=== PATIENT | male | born 2000 | race Caucasian/White ===

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

== ENCOUNTER 2018-01-24 07:44 | Emergency (ER) | payer MEDICAID ==
--- NOTE | 2018-01-24 08:11 | ED ---
Shortness of Breath - HPI Summary HPI Summary: Patient is a 17 y/o M BIBA w c/o SOB and left chest pain onsetting this morning at 0600. In the room, he states he "cannot breath" as he is browsing his phone. He states that he recently found out that he has cardiac problems but he is unsure of a specific problem. Patient reports Hx of anxiety. SI is denied. On triage, pain is rated 3/10, nothing is noted to aggravate/alleviate Sx. Home medications and allergies are reviewed. - History of Current Complaint Chief Complaint: EDShortnessOfBreath Time Seen by Provider: 01/24/18 07:50 Hx Obtained From: Patient Onset/Duration: Lasting Hours - onset 0600, Still Present Timing: Constant Current Severity: Mild - 3/10 Aggrevating Factors: Nothing Alleviating Factors: Nothing - Allergy/Home Medications Allergies/Adverse Reactions: Allergies Allergy/AdvReac Type Severity Reaction Status Date / Time No Known Allergies Allergy Verified 01/24/18 07:52 PMH/Surg Hx/FS Hx/Imm Hx Endocrine/Hematology History: Denies: Hx Anemia Cardiovascular History: Denies: Hx Hypertension, Other Cardiovascular Problems/Disorders - PT CLAIMS TO HAVE HEART PROBLEMS OF UNSPECIFIED TYPE Respiratory History: Denies: Hx Asthma Sensory History: Denies: Hx Contacts or Glasses, Hx Hearing Aid Opthamlomology History: Denies: Hx Contacts or Glasses Neurological History: Reports: Hx 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 on 05/15/2016, Hx Seizures Psychiatric History: Reports: Hx Anxiety, Hx Depression, Hx Post Traumatic Stress Disorder, Hx Inpatient Treatment, Hx Community Mental Health Tx, Hx Bipolar Disorder, Hx of Violent Episodes Against Others, Hx Substance Abuse, Other Psychiatric Issues/Disorders - ODD Denies: Hx Eating Disorder, Hx Panic Disorder, Hx Schizophrenia, Hx Suicide Attempt - Surgical History Surgery Procedure, Year, and Place: undescended testicle Infectious Disease History: No Infectious Disease History: Denies: Hx Clostridium Difficile, Hx Hepatitis, Hx Human Immunodeficiency Virus (HIV), Hx of Known/Suspected MRSA, Hx Shingles, Hx Tuberculosis, Hx Known/ Suspected VRE, Hx Known/Suspected VRSA, History Other Infectious Disease, Traveled Outside the [place] in Last 30 Days - Family History Known Family History: Positive: Cardiac Disease - Dad with [place] x 4, Other - SI and suicide - brother. Schizophrenia and bipolar positive to father Negative: Hypertension, Diabetes - Social History Alcohol Use: None Alcohol Amount: "2 bottles of vodka weekly" Hx Substance Use: Yes - denies using as of 05/15/2016 Substance Use Type: Reports: Cocaine, Marijuana, Other Substance Use Comment - Amount & Last Used: none in 6 months d/t probation Hx Tobacco Use: No Smoking Status (MU): Heavy Every Day Tobacco Smoker Type: Cigarettes Review of Systems Positive: Chest Pain Positive: Shortness Of Breath Positive: Other - denies SI All Other Systems Reviewed And Are Negative: Yes Physical Exam - Summary Physical Exam Summary: Appearance: Well appearing, no pain distress Skin: warm, dry, reflects adequate perfusion Head/face: normal Eyes: EOMI, VICKY ENT: normal Neck: supple, non-tender Respiratory: CTA, breath sounds present Cardiovascular: RRR, pulses symmetrical Abdomen: non-tender, soft Bowel: present Musculoskeletal: normal, strength/ROM intact Neuro: normal, sensory motor intact, A&Ox3 Triage Information Reviewed: Yes Vital Signs On Initial Exam: Initial Vitals Temp Pulse Resp BP Pulse Ox 98.0 F 66 14 119/77 96 01/24/18 07:48 01/24/18 07:48 01/24/18 07:48 01/24/18 07:48 01/24/18 07:48 Vital Signs Reviewed: Yes Diagnostics - Vital Signs Vital Signs Temp Pulse Resp BP Pulse Ox 01/24/18 07:48 98.0 F 66 14 119/77 96 - Laboratory Result Diagrams: 01/24/18 08:31 01/24/18 08:31 Lab Statement: Any lab studies that have been ordered have been reviewed, and results considered in the medical decision making process. - Radiology CXR Radiology Interpretation Completed By: Radiologist Summary of Radiographic Findings: No evidence for acute intrathoracic disease. This report was reviewed by ED physician. - EKG 0828 Cardiac Rate: NL - rate of 70 BPM EKG Rhythm: Sinus Rhythm Summary of EKG Findings: no acute changes Re-Evaluation - Re-Evaluation First Eval Re-Evaluation Time: 09:42 Comment: Discussed results of labs and tests as well as follow up treatment plan. Patient is agreeable with discharge. Course/Dx - Course Course Of Treatment: Patient is a 17 y/o M BIBA w c/o SOB and left chest pain onsetting this morning at 0600. In the room, he states he "cannot breath" as he is browsing his phone. He states that he recently found out that he has cardiac problems but he is unsure of a specific problem. Patient reports Hx of anxiety. SI is denied. Physical exam was unremarkable. Bloodwork obtained. CXR showed no evidence for acute intrathoracic disease. EKG showed sinus rhythm and rate with no acute changes. Discussed results of labs and tests as well as follow up treatment plan. Patient is agreeable with discharge. Dx of anxiety. - Diagnoses Provider Diagnoses: Anxiety Discharge - Sign-Out/Discharge Documenting (check all that apply): Patient Departure - discharge - Discharge Plan Condition: Stable Disposition: HOME Patient Education Materials: Anxiety (ED) Referrals: [facility] [Outside] - 3 Days Additional Instructions: RETURN TO ED FOR ANY NEW OR WORSENING SYMPTOMS. FOLLOW UP WITH PRIMARY CARE PHYSICIAN IN THREE DAYS. - Billing Disposition and Condition Condition: STABLE Disposition: Home - Attestation Statements Document Initiated by Sylviaibe: Yes Documenting Scribe: Evangelista Capellan Provider For Whom Iris is Documenting (Include Credential): Ari Elliott MD Scribe Attestation: Evangelista Carter scribed for Ari Elliott MD on 01/24/18 at 1106. Scribe Documentation Reviewed: Yes Provider Attestation: The documentation as recorded by the Evangelista shafer accurately reflects the service I personally performed and the decisions made by me, Ari Elliott MD
--- NOTE | 2018-01-24 08:27 | RAD ---
INDICATION: Mild dyspnea. Chest pain. COMPARISON: December 04, 2016 TECHNIQUE: Dual energy PA and routine lateral views of the chest were obtained. REPORT: No focal pulmonary lesion, compelling alveolar consolidation, pleural effusion, pneumothorax. Negative for cardiomegaly. Unremarkable central pulmonary vasculature. Accounting for mild RIGHT convex curve of the mid to distal thoracic spine the mediastinal contours are unremarkable. Old high-grade RIGHT AC joint separation with associated dystrophic calcifications. No acute fracture visualized. IMPRESSION: #. No evidence for acute intrathoracic disease.
[2018-01-24 08:41] LABS: ABS Basophils 0 10^3/ul (0-0.2); ABS Eosinophils 0.3 10^3/ul (0-0.6); ABS Lymphocytes 2.1 10^3/ul (1.0-4.8); ABS Monocytes 0.5 10^3/ul (0-0.8); ABS Neutrophils 2.4 10^3/ul (1.5-7.7); ABS Nucleated RBC 0 10^3/ul; Eosinophil % 5.7 % (0-6); Hematocrit 41 % (42-52); Hemoglobin 14.2 g/dl (14.0-18.0); Lymphocyte % 39.9 % (25-47); Mean Corpuscular HGB Conc 35 g/dl (31-36); Mean Corpuscular Hemoglobin 31 pg (27-31); Mean Corpuscular Volume 88 fL (80-94); Mean Platelet Volume 7.3 um3 (7.4-10.4); Nucleated Red Blood Cells % 0.1; Platelet Count 204 10^3/ul (150-450); Red Blood Count 4.67 10^6/ul (4.00-5.40); Red Cell Distribution Width 13 % (10.5-15); White Blood Count 5.3 10^3/ul (3.5-10.8)
[2018-01-24 09:01] LABS: EGFR Non-African American 117.7 (>60)
[2018-01-24 10:39] VITALS: BP 117/75
== END 2018-01-24 10:50 | disposition home or self-care (01) ==
LOC: ED 07:44
DX: F41.9 Anxiety disorder, unspecified (principal); R07.89 Other chest pain; R06.02 Shortness of breath; Z82.49 Family history of ischemic heart disease and other diseases of the circulatory system; Z81.8 Family history of other mental and behavioral disorders; F17.210 Nicotine dependence, cigarettes, uncomplicated
CPT/HCPCS: 36415; 71046; 80053; 83880; 84443; 84484; 85025; 85379; 93005; 99283

== ENCOUNTER 2018-03-03 07:18 | Emergency (ER) | payer MEDICAID ==
--- NOTE | 2018-03-03 07:33 | ED ---
Throat Pain/Nasal Congestion - HPI Summary HPI Summary: This pt is a 18 y/o male presenting to [facility] via EMS for sore throat today. Pt reports his sore throat began this morning. He additionally reports dry cough, SOB, nausea, and headache. Pt states he didn't feel well yesterday. Denies fever , chest pain, vomiting, diarrhea, neck pain, photophobia. Pt does admit to smoking tobacco. Denies any alcohol or drugs. PMHx: pt reports "heart problem" but unable to specify. - History of Current Complaint Chief Complaint: EDThroatPain Time Seen by Provider: 03/03/18 07:22 Hx Obtained From: Patient Onset/Duration: Lasting Hours, Still Present Severity: Moderate Associated Signs And Symptoms: Negative: Dysphagia, FB Sensation, Drooling, Wheezing, Hoarseness, Sinus Discomfort, Nasal Discharge Cough: Nonproductive Related History: Smoking - Allergies/Home Medications Allergies/Adverse Reactions: Allergies Allergy/AdvReac Type Severity Reaction Status Date / Time No Known Allergies Allergy Verified 03/03/18 07:35 Home Medications: Home Medications Paliperidone SUSTENNA* [Invega Sustenna*] 234 mg IM WEEKLY 03/03/18 [History Confirmed 03/03/18] PMH/Surg Hx/FS Hx/Imm Hx Endocrine/Hematology History: Denies: Hx Anemia Cardiovascular History: Denies: Hx Hypertension, Other Cardiovascular Problems/Disorders - PT CLAIMS TO HAVE HEART PROBLEMS OF UNSPECIFIED TYPE Respiratory History: Denies: Hx Asthma Sensory History: Denies: Hx Contacts or Glasses, Hx Hearing Aid Opthamlomology History: Denies: Hx Contacts or Glasses Neurological History: Reports: Hx 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 on 05/15/2016, Hx Seizures Psychiatric History: Reports: Hx Anxiety, Hx Depression, Hx Post Traumatic Stress Disorder, Hx Inpatient Treatment, Hx Community Mental Health Tx, Hx Bipolar Disorder, Hx of Violent Episodes Against Others, Hx Substance Abuse, Other Psychiatric Issues/Disorders - ODD Denies: Hx Eating Disorder, Hx Panic Disorder, Hx Schizophrenia, Hx Suicide Attempt - Surgical History Surgery Procedure, Year, and Place: undescended testicle Infectious Disease History: No Infectious Disease History: Denies: Hx Clostridium Difficile, Hx Hepatitis, Hx Human Immunodeficiency Virus (HIV), Hx of Known/Suspected MRSA, Hx Shingles, Hx Tuberculosis, Hx Known/ Suspected VRE, Hx Known/Suspected VRSA, History Other Infectious Disease, Traveled Outside the [place] in Last 30 Days - Family History Known Family History: Positive: Cardiac Disease - Dad with [place] x 4, Other - SI and suicide - brother. Schizophrenia and bipolar positive to father Negative: Hypertension, Diabetes - Social History Alcohol Use: Weekly Alcohol Amount: "2 bottles of vodka weekly" Hx Substance Use: Yes - denies using as of 05/15/2016 Substance Use Type: Reports: Cocaine, Marijuana, Other Substance Use Comment - Amount & Last Used: none in 6 months d/t probation Hx Tobacco Use: No Smoking Status (MU): Heavy Every Day Tobacco Smoker Type: Cigarettes Review of Systems Negative: Fever, Chills Negative: Photophobia Positive: Sore Throat Negative: Chest Pain Positive: Shortness Of Breath, Cough Positive: Nausea. Negative: Vomiting, Diarrhea Negative: Other - neck pain Positive: Headache All Other Systems Reviewed And Are Negative: Yes Physical Exam - Summary Physical Exam Summary: VITAL SIGNS: Reviewed. GENERAL: Patient is a well-developed and nourished male who is lying comfortable in the stretcher. Patient is not in any acute respiratory distress. HEAD AND FACE: No signs of trauma. No ecchymosis, hematomas or skull depressions. No sinus tenderness. EYES: PERRLA, EOMI x 2, No injected conjunctiva, no nystagmus. EARS: Hearing grossly intact. Ear canals and tympanic membranes are within normal limits. MOUTH: Pharyngeal erythema, no exudates. No retropharyngeal abscess. No swelling of the tongue or lips. Airway is patent. NECK: Supple, trachea is midline, no adenopathy, no JVD, no carotid bruit, no c- spine tenderness, neck with full ROM. CHEST: Symmetric, no tenderness at palpation LUNGS: Clear to auscultation bilaterally. No wheezing or crackles. CVS: Regular rate and rhythm, S1 and S2 present, no murmurs or gallops appreciated. ABDOMEN: Soft, non-tender. No signs of distention. No rebound, no guarding, and no masses palpated. Bowel sounds are normal. EXTREMITIES: FROM in all major joints, no edema, no cyanosis or clubbing. NEURO: Alert and oriented x 3. No acute neurological deficits. Speech is normal and follows commands. SKIN: Dry and warm Triage Information Reviewed: Yes Vital Signs On Initial Exam: Initial Vitals Temp Pulse Resp BP Pulse Ox 98.0 F 62 18 111/75 94 03/03/18 07:19 03/03/18 07:19 03/03/18 07:19 03/03/18 07:19 03/03/18 07:19 Vital Signs Reviewed: Yes Diagnostics - Vital Signs Vital Signs Temp Pulse Resp BP Pulse Ox 03/03/18 07:19 98.0 F 62 18 111/75 94 - Laboratory Result Diagrams: 03/03/18 07:41 03/03/18 07:41 Lab Statement: Any lab studies that have been ordered have been reviewed, and results considered in the medical decision making process. Re-Evaluation - Re-Evaluation First Eval Re-Evaluation Time: 09:20 Comment: Discussed test results with pt. He will be discharged home. EENT Course/Dx - Course Assessment/Plan: This pt is a 18 y/o male presenting to [facility] via EMS for sore throat today. Pt reports his sore throat began this morning. He additionally reports dry cough, SOB, nausea, and headache. Pt states he didn't feel well yesterday. Denies fever, chest pain, vomiting, diarrhea, neck pain, photophobia. Pt does admit to smoking tobacco. Denies any alcohol or drugs. PMHx: pt reports "heart problem" but unable to specify. Blood work without any significant abnormality. Rapid strep is negative, [place] screen is negative. Therefore, I believe that the patient's symptoms are secondary to a viral infection. He was given Decadron and ibuprofen in the ED and he will be discharged home with follow-up with primary care physician. He was recommended to take ibuprofen as needed. The patient understands and agrees. I discussed all the findings and test results with the patient. Patient was instructed to return to the emergency room immediately if any of the symptoms return or worsens. Plan of care was discussed with the patient, and he understands and agrees. All questions were answered at patient satisfaction. There were no further complaints or concerns. Lung exam before discharge: CTA B/L. Good air exchange. No wheezing or crackles heard. CVS: S1 and S2 present. No murmurs appreciated. Patient is alert and oriented x 3. Patient is hemodynamically stable. Patient will be discharged home with follow up PCP in the next 2-3 days. - Diagnoses Provider Diagnoses: Pharyngitis Discharge - Sign-Out/Discharge Documenting (check all that apply): Patient Departure - Discharge home - Discharge Plan Condition: Stable Disposition: HOME Patient Education Materials: Pharyngitis (ED) Referrals: [facility] [address] [Outside] [facility] [Outside] Additional Instructions: FOLLOW UP WITH YOUR PRIMARY CARE PROVIDER WITHIN 2-3 DAYS. If you don't have a primary care provider, please follow up with [facility]. RETURN TO THE ED FOR ANY NEW OR WORSENING SYMPTOMS. - Billing Disposition and Condition Condition: STABLE Disposition: Home - Attestation Statements Document Initiated by Iris: Yes Documenting Scribe: Asia Bourgeois Provider For Whom Iris is Documenting (Include Credential): Cas Kumar MD Scribe Attestation: Asia Carter scribed for Cas Kumar MD on 03/03/18 at 1844. Scribe Documentation Reviewed: Yes Provider Attestation: The documentation as recorded by the Asia shafer accurately reflects the service I personally performed and the decisions made by Cas mejia MD Status of Scribe Document: Viewed
[2018-03-03 07:57] LABS: ABS Basophils 0.1 10^3/ul (0-0.2); ABS Eosinophils 0.5 10^3/ul (0-0.6); ABS Lymphocytes 2.7 10^3/ul (1.0-4.8); ABS Monocytes 0.5 10^3/ul (0-0.8); ABS Neutrophils 2.2 10^3/ul (1.5-7.7); ABS Nucleated RBC 0 10^3/ul; Eosinophil % 7.7 %; Hematocrit 42 % (42-52); Hemoglobin 14.8 g/dl (14.0-18.0); Lymphocyte % 45.3 %; Mean Corpuscular HGB Conc 35 g/dl (31-36); Mean Corpuscular Hemoglobin 31 pg (27-31); Mean Corpuscular Volume 87 fL (80-94); Mean Platelet Volume 7.6 fL (7.4-10.4); Nucleated Red Blood Cells % 0.4; Platelet Count 212 10^3/ul (150-450); Red Blood Count 4.83 10^6/ul (4.00-5.40); Red Cell Distribution Width 12 % (10.5-15); White Blood Count 5.9 10^3/ul (3.5-10.8)
[2018-03-03 08:12] LABS: EGFR Non-African American 113.4 (>60)
[2018-03-03] MEDS ORDERED: Ketorolac INJ* 60 MG/2 ML VIAL IM ONE (08:20)
[2018-03-03] MEDS ORDERED: Dexamethasone IV* 4 MG/ML 1 ML (4 MG) IM ONE (08:20)
[2018-03-03] MEDS ORDERED: Ibuprofen TAB* 800 MG PO ONE (09:02)
[2018-03-03] MEDS ORDERED: Dexamethasone TAB* 4 MG PO ONE (09:02)
[2018-03-03 09:14] VITALS: BP 108/69
== END 2018-03-03 09:14 | disposition home or self-care (01) ==
LOC: ED 07:18
DX: J02.9 Acute pharyngitis, unspecified (principal); F17.210 Nicotine dependence, cigarettes, uncomplicated; R05 Cough; R06.02 Shortness of breath; R11.0 Nausea; R51 Headache
CPT/HCPCS: 36415; 80053; 83605; 85025; 86140; 86308; 87651; 99283; A9270-GY; J1100; J1885; J8540

== ENCOUNTER 2018-03-19 10:07 | Emergency (ER) | payer MEDICAID ==
[2018-03-19 10:55] VITALS: BP 130/87
--- NOTE | 2018-03-19 12:24 | UC ---
Cardiac HPI - HPI Summary HPI Summary: 2 days of sharp mid sternal/left sided chest pain with associated nausea/ vomiting with occasional streaks of blood as well as shortness of breath. Also complains of sore throat and pain with swallowing. States he has a hard time even getting liquids down. Has had several episodes of loose stools. Is concerned about a cardiac etiology as he states his father had several heart attacks and heart surgeries while in his 20s. Patient has a history of cocaine use but states none in the past 8 months. Arrives accompanied by his casey saw operator. - History of Current Complaint Chief Complaint: UCRespiratory Stated Complaint: COUGHING UP BLOOD Time Seen by Provider: 03/19/18 11:55 Hx Obtained From: Patient, Family/Wire Strander - [employer] Onset/Duration: Sudden Onset, Lasting Days, Still Present Timing: Constant Initial Severity: Moderate Current Severity: Moderate Pain Intensity: 6 Chest Pain Location: Mid Sternal, Left Anterior Character: Sharp/Stabbing Aggravating Factor(s): Nothing Alleviating Factor(s): Nothing Associated Signs & Symptoms: Positive: Chest Pain, SOB, Nausea/Vomiting, Cough - Allergy/Home Medications Allergies/Adverse Reactions: Allergies Allergy/AdvReac Type Severity Reaction Status Date / Time No Known Allergies Allergy Verified 03/19/18 10:55 PMH/Surg Hx/FS Hx/Imm Hx Psychological History: Bipolar Disorder - Surgical History Surgical History: Yes Surgery Procedure, Year, and Place: undescended testicle - Family History Known Family History: Positive: Cardiac Disease - Dad with [place] x 4, Other - SI and suicide - brother. Schizophrenia and bipolar positive to father Negative: Hypertension, Diabetes - Social History Alcohol Use: Weekly Alcohol Amount: has not been drinking while on probation Substance Use Type: Cocaine, Marijuana, Other Substance Use Comment - Amount & Last Used: none in 6 months d/t probation Smoking Status (MU): Heavy Every Day Tobacco Smoker Type: Cigarettes Household Exposure Type: Cigarettes - Immunization History Most Recent Influenza Vaccination: unknown Most Recent Tetanus Shot: 2009 Most Recent Pneumonia Vaccination: unknown Vaccination Up to Date: Yes Review of Systems All Other Systems Reviewed And Are Negative: Yes Constitutional: Positive: Negative ENT: Positive: Sore Throat - ODYNOPHAGIA Respiratory: Positive: Shortness Of Breath Cardiovascular: Positive: Chest Pain Gastrointestinal: Positive: Vomiting, Nausea Physical Exam Triage Information Reviewed: Yes Appearance: Well-Appearing, No Pain Distress, Well-Nourished Vital Signs: Initial Vital Signs Temp 97.6 F 03/19/18 10:48 Pulse 99 03/19/18 10:48 Resp 22 03/19/18 10:48 BP 130/87 03/19/18 10:48 Pulse Ox 98 03/19/18 10:48 Eyes: Positive: Conjunctiva Clear ENT: Positive: Hearing grossly normal, Pharynx normal, TMs normal Neck: Positive: Supple, Nontender, No Lymphadenopathy Respiratory Exam: Normal Cardiovascular Exam: Normal Abdomen Description: Positive: Soft, Other: - MILDLY TENDER LLQ. NO REBOUND OR RIGIDITY. Negative: CVA Tenderness (R), CVA Tenderness (L), Distended, Guarding Bowel Sounds: Positive: Present Musculoskeletal: Positive: No Edema Neurological: Positive: Alert Psychological: Positive: Age Appropriate Behavior Skin: Negative: Rashes Diagnostics - EKG Cardiac Rate: NL - 66 bpm Ectopy: None ST Segment: Normal - Assessment/Plan Course Of Treatment: PATIENT COMPLAINING OF 2 DAYS OF CONSTANT SHARP MIDSTERNAL/ LEFT-SIDED CHEST PAIN ASSOCIATED WITH SHORTNESS OF BREATH AND VOMITING. STATES HIS FATHER HAS A HISTORY OF HEART ATTACKS AND HEART SURGERIES WHILE IN HIS 20S. PATIENT WOULD LIKE HIS HEART EVALUATED TODAY SO [place] SEND [place] [facility] [place]THER [place]ALU[place]. PT OFFERED TRANSPORT TO THE ED BY AMBULANCE BUT DECLINES. ADVISED THAT BY NOT TRAVELING IN A MONITORED SETTING HE COULD BE RISKING WORSENING OF HIS CONDITION THAT COULD POSE A THREAT TO HIS LIFE, HEALTH AND MEDICAL SAFETY. HE VERBALIZES UNDERSTANDING AND CONTINUES TO DECLINE AMBULANCE TRANSFER. - Clinical Impression Provider Diagnosis: Chest pain Discharge - Sign-Out/Discharge Documenting (check all that apply): Patient Departure All imaging exams completed and their final reports reviewed: No Studies - Discharge Plan Condition: Stable Disposition: TRANS HIGHER LVL OF CARE FAC Patient Education Materials: Chest Pain (ED) Referrals: No Primary Care Phys,NOPCP [Primary Care Provider] - Additional Instructions: GO DIRECTLY TO [place] [facility] [place] HERE FOR FURTHER EVALUATION. YOU HAVE DECLINED TRANSFER TO THE ED BY AMBULANCE. BE ADVISED THAT BY NOT TRAVELING IN A MONITORED SETTING YOU COULD BE RISKING WORSENING OF YOUR CONDITION THAT COULD POSE A THREAT TO YOUR LIFE, HEALTH AND MEDICAL SAFETY. - Billing Disposition and Condition Condition: STABLE Disposition: Trans Higher Lvl of Care Fac
== END 2018-03-19 12:35 | disposition short-term general hospital (02) ==
LOC: UCEAST 10:07
DX: R07.9 Chest pain, unspecified (principal); F17.210 Nicotine dependence, cigarettes, uncomplicated
CPT/HCPCS: 93005; 99212; G0463

== ENCOUNTER 2018-03-19 12:51 | Emergency (ER) | payer MEDICAID ==
--- NOTE | 2018-03-19 14:40 | ED ---
HPI Cardiac - HPI Summary HPI Summary: Patient is a 18 y/o M presenting to ED with complaints of chest pain, N/V/D, SOB , sore throat and difficulty swallowing. Sx onset yesterday and worsened today. [facility], patient was sent to ED for further workup. Patient smokes crack, snorts cocaine. He denies heroin usage stating "I hate needles". In the room, he reports Sx are still present. No leg pain, swelling. Patient smokes cigarettes. No fever, body aches. He reports some back pain. Father had CA and heart surgery in 20s, son notes that father engaged in cocaine usage as well. He also reports left arm pain but states this onset after he left UC and after he had EKG sticker removed from this arm. Fever, chills, erythema of eyes, cough, abdominal pain, dysuria, hematuria, myalgia, edema, rash and dizziness are not reported. On triage, pain is rated 8/ 10, nothing is noted to aggravate/alleviate Sx. Home medications and allergies are reviewed. - History of Current Complaint Chief Complaint: EDChestPainROMI Stated Complaint: CHEST PAIN Time Seen by Provider: 03/19/18 13:22 Hx Obtained From: Patient Onset/Duration: Started Days Ago - yesterday, Still Present, Worse Since Timing: Lasting Days - yesterday Initial Severity: Moderate Current Severity: Severe - 8/10 Pain Intensity: 8 Pain Scale Used: 0-10 Numeric - 8/10 Aggravating Factor(s): Nothing Alleviating Factor(s): Nothing Associated Signs and Symptoms: Positive: Chest Pain, Shortness of Breath, Nausea , Back Pain, Vomiting, Other: - endorses sore throat, difficulty swallowing, back pain, left arm pain; Fever, chills, erythema of eyes, cough, abdominal pain , dysuria, hematuria, myalgia, edema, rash, leg pain, leg swelling, body aches and dizziness are not reported.. Negative: Fever, Chills, Cough, Abdominal Pain , Calf Pain/Swelling - Additional Pertinent History Primary Care Physician: [id number] - Allergy/Home Medications Allergies/Adverse Reactions: Allergies Allergy/AdvReac Type Severity Reaction Status Date / Time No Known Allergies Allergy Verified 03/19/18 10:55 Home Medications: Home Medications Paliperidone Palmitate [Invega Trinza] 819 mg IM Q3M 12/19/18 [History Confirmed 03/19/18] PMH/Surg Hx/FS Hx/Imm Hx Endocrine/Hematology History: Denies: Hx Anemia Cardiovascular History: Denies: Hx Hypertension, Other Cardiovascular Problems/Disorders - PT CLAIMS TO HAVE HEART PROBLEMS OF UNSPECIFIED TYPE Respiratory History: Denies: Hx Asthma Sensory History: Denies: Hx Contacts or Glasses, Hx Hearing Aid Opthamlomology History: Denies: Hx Contacts or Glasses Neurological History: Reports: Hx 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 on 05/15/2016, Hx Seizures Psychiatric History: Reports: Hx Anxiety, Hx Depression, Hx Post Traumatic Stress Disorder, Hx Inpatient Treatment, Hx Community Mental Health Tx, Hx Bipolar Disorder, Hx of Violent Episodes Against Others, Hx Substance Abuse, Other Psychiatric Issues/Disorders - ODD Denies: Hx Eating Disorder, Hx Panic Disorder, Hx Schizophrenia, Hx Suicide Attempt - Surgical History Surgery Procedure, Year, and Place: undescended testicle Infectious Disease History: No Infectious Disease History: Denies: Hx Clostridium Difficile, Hx Hepatitis, Hx Human Immunodeficiency Virus (HIV), Hx of Known/Suspected MRSA, Hx Shingles, Hx Tuberculosis, Hx Known/ Suspected VRE, Hx Known/Suspected VRSA, History Other Infectious Disease, Traveled Outside the [place] in Last 30 Days - Family History Known Family History: Positive: Cardiac Disease - Dad with CA x 4, Other - SI and suicide - brother. Schizophrenia and bipolar positive to father Negative: Hypertension, Diabetes - Social History Alcohol Use: Weekly Alcohol Amount: has not been drinking while on probation Hx Substance Use: Yes - denies using as of 05/15/2016 Substance Use Type: Reports: Cocaine, Marijuana, Other Substance Use Comment - Amount & Last Used: none in 6 months d/t probation Hx Tobacco Use: No Smoking Status (MU): Heavy Every Day Tobacco Smoker Type: Cigarettes Review of Systems Negative: Fever, Chills Negative: Erythema ENT: Other - POSITIVE - DIFFICULTY SWALLOWING Positive: Sore Throat Positive: Chest Pain Positive: Shortness Of Breath. Negative: Cough Positive: Vomiting, Diarrhea, Nausea. Negative: Abdominal Pain Negative: dysuria, hematuria Musculoskeletal: Other - POSITIVE - BACK PAIN, LEFT ARM PAIN Negative: Myalgia, Edema Negative: Rash Neurological: Other - NEGATIVE - DIZZINESS All Other Systems Reviewed And Are Negative: Yes Physical Exam - Summary Physical Exam Summary: Constitutional: Well-developed, Well-nourished, Alert. (-) Distressed Skin: Warm, Dry HENT: Normocephalic; Atraumatic Eyes: Conjunctiva normal Neck: Musculoskeletal ROM normal neck. (-) JVD, (-) Stridor, (-) Tracheal deviation Cardio: Rhythm regular, rate normal, Heart sounds normal; Intact distal pulses; The pedal pulses are 2+ and symmetric. Radial pulses are 2+ and symmetric. (-) Murmur Pulmonary/Chest wall: Effort normal. (-) Respiratory distress, (-) Wheezes, (-) Rales Abd: Soft, (-) epigastric tenderness, (-) Distension, (-) Guarding, (-) Rebound Musculoskeletal: (-) Edema Lymph: (-) Cervical adenopathy Neuro: Alert, Oriented x3 Psych: Mood and affect Normal Triage Information Reviewed: Yes Vital Signs On Initial Exam: Initial Vitals Temp Pulse Resp BP Pulse Ox 98.7 F 88 18 150/91 96 03/19/18 13:00 03/19/18 13:00 03/19/18 13:00 03/19/18 13:00 03/19/18 13:00 Vital Signs Reviewed: Yes Diagnostics - Vital Signs Vital Signs Temp Pulse Resp BP Pulse Ox 03/19/18 13:00 98.7 F 88 18 150/91 96 - Laboratory Result Diagrams: 03/19/18 14:26 03/19/18 14:26 Lab Statement: Any lab studies that have been ordered have been reviewed, and results considered in the medical decision making process. - Radiology CXR Radiology Interpretation Completed By: Radiologist Summary of Radiographic Findings: CXR IMPRESSION: No radiographic evidence for acute cardiopulmonary abnormality on this. portable chest x-ray. THIS REPORT WAS REVIEWED BY ED PHYSICIAN. - EKG 1316 Cardiac Rate: Other Rate - sinus arrhythmia with rate of 61 BPM Summary of EKG Findings: EKG showed sinus arrhythmia with rate of 61 BPM, no STEMI. Re-Evaluation - Re-Evaluation First Eval Re-Evaluation Time: 18:01 Comment: Patient states he is now experiencing IBARRA and lightheadedness every time he stands up. Patient given Tylenol. Second Eval Re-Evaluation Time: 18:18 Comment: Results of labs and tests discussed with patient, patient will be discharged to home and follow up with PCP. Patient is agreeable with this. Disposition - Course Course Of Treatment: Patient is a 18 y/o M presenting to ED with complaints of chest pain, N/V/D, SOB, sore throat and difficulty swallowing. Sx onset yesterday and worsened today. He was seen at [facility], patient was sent to ED for further workup. Patient smokes crack, snorts cocaine. He denies heroin usage stating "I hate needles". In the room, he reports Sx are still present. No leg pain, swelling. Patient smokes cigarettes. No fever, body aches. He reports some back pain. Father had CA and heart surgery in 20s, son notes that father engaged in cocaine usage as well. He also reports left arm pain but states this onset after he left UC and after he had EKG sticker removed from this arm. Physical exam is unremarkable. CXR IMPRESSION: No radiographic evidence for acute cardiopulmonary abnormality on this. portable chest x-ray. EKG showed sinus arrhythmia with rate of 61 BPM, no STEMI. Labs showed glucose 104, lactic acid 1.1. First and second trop were 0 Tox screen was negative. Flu test negative. During ED course, patient received Tylenol 650 mg. Workup was negative. No signs of CA, PE, or pericarditis. Given the wide range of varied Sx, patient could be at the beginning of a viral sydrome. Results of labs and tests discussed with patient, patient will be discharged to home and follow up with PCP. Patient is agreeable with this. - Diagnoses Provider Diagnoses: Chest pain, unspecified, Malaise Discharge - Sign-Out/Discharge Documenting (check all that apply): Patient Departure - discharge - Discharge Plan Condition: Stable Disposition: HOME Patient Education Materials: Chest Pain (ED), Weakness (ED) Referrals: [facility] [Outside] - 2 Days Additional Instructions: RETURN TO THE EMERGENCY DEPARTMENT FOR CHANGING OR WORSENING SYMPTOMS. FOLLOW UP WITH PRIMARY CARE PHYSICIAN IN 2 DAYS. - Billing Disposition and Condition Condition: STABLE Disposition: Home - Attestation Statements Document Initiated by Scribe: Yes Documenting Scribe: TOMMIE HARPER Provider For Whom Scribe is Documenting (Include Credential): SABRINA MACKAY MD Scribe Attestation: TOMMIE Carter , scribed for SABRINA MACKAY MD on 03/21/18 at 2047. Scribe Documentation Reviewed: Yes Provider Attestation: The documentation as recorded by the scribe, TOMMIE HARPER accurately reflects the service I personally performed and the decisions made by me, SABRINA MACKAY MD Status of Scribe Document: Viewed
[2018-03-19 14:41] LABS: ABS Basophils 0.1 10^3/ul (0-0.2); ABS Eosinophils 0.3 10^3/ul (0-0.6); ABS Lymphocytes 2.3 10^3/ul (1.0-4.8); ABS Monocytes 0.6 10^3/ul (0-0.8); ABS Neutrophils 3.6 10^3/ul (1.5-7.7); ABS Nucleated RBC 0 10^3/ul; Eosinophil % 4.5 %; Hematocrit 44 % (42-52); Hemoglobin 15.6 g/dl (14.0-18.0); Mean Corpuscular HGB Conc 35 g/dl (31-36); Mean Corpuscular Hemoglobin 31 pg (27-31); Mean Corpuscular Volume 87 fL (80-94); Mean Platelet Volume 7.4 fL (7.4-10.4); Nucleated Red Blood Cells % 0.1; Platelet Count 235 10^3/ul (150-450); Red Blood Count 5.04 10^6/ul (4.00-5.40); Red Cell Distribution Width 13 % (10.5-15); White Blood Count 6.9 10^3/ul (3.5-10.8)
[2018-03-19 15:03] LABS: Albumin 4.8 g/dL (3.2-5.2); Albumin/Globulin Ratio 1.9 (1-3); BUN/Creatinine Ratio 18.2 (8-20); Calcium 9.7 mg/dL (8.6-10.3); EGFR Non-African American 110.4 (>60); Globulin 2.5 g/dL (2-4); Potassium 4.2 mmol/L (3.5-5.0); Total Bilirubin 0.4 mg/dL (0.2-1.0); Total Protein 7.3 g/dL (6.4-8.9)
[2018-03-19 15:31] LABS: Barbiturates Urine Screen None Detected (None Detect); Benzodiazepine Urine Screen None Detected (None Detect); Urine Cannabinoids Screen None Detected (None Detect)
[2018-03-19] MEDS ORDERED: Nicotine Inhaler* 10 MG AMP INH ONE (17:34)
[2018-03-19] MEDS ORDERED: Acetaminophen TAB* 325 MG PO ONE (18:02)
[2018-03-19 18:46] VITALS: BP 120/79
== END 2018-03-19 18:39 | disposition home or self-care (01) ==
LOC: ED 12:51
DX: R07.9 Chest pain, unspecified (principal); R53.81 Other malaise; F17.210 Nicotine dependence, cigarettes, uncomplicated; R62.50 Unspecified lack of expected normal physiological development in childhood; F31.9 Bipolar disorder, unspecified; F43.10 Post-traumatic stress disorder, unspecified; Z82.49 Family history of ischemic heart disease and other diseases of the circulatory system
CPT/HCPCS: 36415; 71045; 80053; 80307; 83605; 84484; 85025; 93005; 99283; A9270-GY

== ENCOUNTER 2018-04-04 00:26 | Emergency (ER) | payer MEDICAID ==
--- NOTE | 2018-04-04 00:50 | ED ---
Abdominal Pain/Male - HPI Summary HPI Summary: This patient is a 18 year old M brought in by ambulance with a chief complaint of left flank pain since three hours ago. The patient rates the pain 10/10 in severity. Patient reports that he hasnt urinated since yesterday. Patient denies vomiting or diarrhea. The patient does not recall what he was doing when the pain started, but he was in his apartment. PMHX kidney stones. - History of Current Complaint Chief Complaint: EDFlankPain Stated Complaint: FLANK PAIN Time Seen by Provider: 04/04/18 00:43 Hx Obtained From: Patient Onset/Duration: Sudden Onset, Lasting Hours - 3 Timing: Constant Severity Initially: Severe Severity Currently: Severe Pain Intensity: 10 Pain Scale Used: 0-10 Numeric Location: Flank - left Character: Sharp Associated Signs And Symptoms: Positive: Urinary Symptoms - cannot urinate - Allergies/Home Medications Allergies/Adverse Reactions: Allergies Allergy/AdvReac Type Severity Reaction Status Date / Time No Known Allergies Allergy Verified 03/19/18 10:55 PMH/Surg Hx/FS Hx/Imm Hx Endocrine/Hematology History: Denies: Hx Anemia Cardiovascular History: Denies: Hx Hypertension, Other Cardiovascular Problems/Disorders - PT CLAIMS TO HAVE HEART PROBLEMS OF UNSPECIFIED TYPE Respiratory History: Denies: Hx Asthma Sensory History: Denies: Hx Contacts or Glasses, Hx Hearing Aid Opthamlomology History: Denies: Hx Contacts or Glasses Neurological History: Reports: Hx 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 on 05/15/2016, Hx Seizures Psychiatric History: Reports: Hx Anxiety, Hx Depression, Hx Post Traumatic Stress Disorder, Hx Inpatient Treatment, Hx Community Mental Health Tx, Hx Bipolar Disorder, Hx of Violent Episodes Against Others, Hx Substance Abuse, Other Psychiatric Issues/Disorders - ODD Denies: Hx Eating Disorder, Hx Panic Disorder, Hx Schizophrenia, Hx Suicide Attempt - Surgical History Surgery Procedure, Year, and Place: undescended testicle Infectious Disease History: No Infectious Disease History: Denies: Hx Clostridium Difficile, Hx Hepatitis, Hx Human Immunodeficiency Virus (HIV), Hx of Known/Suspected MRSA, Hx Shingles, Hx Tuberculosis, Hx Known/ Suspected VRE, Hx Known/Suspected VRSA, History Other Infectious Disease, Traveled Outside the [place] in Last 30 Days - Family History Known Family History: Positive: Cardiac Disease - Dad with [place] x 4, Other - SI and suicide - brother. Schizophrenia and bipolar positive to father Negative: Hypertension, Diabetes - Social History Alcohol Use: Weekly Alcohol Amount: has not been drinking while on probation Hx Substance Use: Yes - denies using as of 05/15/2016 Substance Use Type: Reports: Cocaine, Marijuana, Other Substance Use Comment - Amount & Last Used: none in 6 months d/t probation Hx Tobacco Use: No Smoking Status (MU): Heavy Every Day Tobacco Smoker Type: Cigarettes Review of Systems Positive: Abdominal Pain - flank pain. Negative: Vomiting, Diarrhea Positive: other - hasn't urinated since yesterday Positive: Other - flank pain All Other Systems Reviewed And Are Negative: Yes Physical Exam - Summary Physical Exam Summary: Appearance: Well-appearing, Well-nourished, lying in bed comfortably Skin: Warm, dry, no obvious rash Eyes: sclera anicteric, no conjunctival pallor ENT: mucous membranes moist, pharynx appears normal Neck: Supple, nontender Respiratory: Clear to auscultation, no signs of respiratory distress Cardiovascular: Normal S1, S2. No murmurs. Normal distal pulses in tibial and radial bilaterally. Abdomen: Soft, nontender, normal active bowel sounds present Musculoskeletal: Normal, Strength/ROM Intact Neurological: A&Ox3, awake and alert, mentation is normal, speech is fluent and appropriate Psychiatric: affect is normal, does not appear anxious or depressed Triage Information Reviewed: Yes Vital Signs On Initial Exam: Initial Vitals Temp Pulse Resp BP Pulse Ox 98.1 F 70 16 133/90 97 04/04/18 00:31 04/04/18 00:31 04/04/18 00:31 04/04/18 00:31 04/04/18 00:31 Vital Signs Reviewed: Yes Diagnostics - Vital Signs Vital Signs Temp Pulse Resp BP Pulse Ox 04/04/18 00:31 98.1 F 70 16 133/90 97 - Laboratory Result Diagrams: 04/04/18 00:41 04/04/18 00:45 Lab Statement: Any lab studies that have been ordered have been reviewed, and results considered in the medical decision making process. - CT Abd/Pelvis CT Interpretation Completed By: Radiologist Summary of CT Findings: No acute abdominal findings. The patient does have colonic diverticulosis without evidence of acute diverticulitis. No bowel obstruction. No abnormal bowel wall thickening. The left kidney is normal in appearance. No hydronephrosis or nephrolithiasis. No hydroureter. No calcified stone within the left ureter or bladder. ED physician has reviewed this report Abdominal Pain Fem Course/Dx - Course Course Of Treatment: This patient is a 18 year old M brought in by ambulance with a chief complaint of left flank pain since three hours ago. The patient rates the pain 10/10 in severity. Patient reports that he hasnt urinated since yesterday. Patient denies vomiting or diarrhea. CT abd/Pelvis reveals No acute abdominal findings. The patient does have colonic diverticulosis without evidence of acute diverticulitis. No bowel obstruction. No abnormal bowel wall thickening. The left kidney is normal in appearance. No hydronephrosis or nephrolithiasis. No hydroureter. No calcified stone within the left ureter or bladder. ED physician has reviewed this radiology report. Test results with no significant abnormalities. Patient will be discharged with follow up from the [facility], if needed. The patient is agreeable with this plan. - Diagnoses Provider Diagnoses: Flank pain Discharge - Sign-Out/Discharge Documenting (check all that apply): Patient Departure - discharge - Discharge Plan Condition: Good Disposition: HOME Patient Education Materials: Flank Pain (ED) Referrals: [facility] [Outside] - 1 Week (if not improving ) Additional Instructions: Your CT scan and lab work were all normal, there is no sign of a kidney stone, infection, or any other problem. - Billing Disposition and Condition Condition: GOOD Disposition: Home - Attestation Statements Document Initiated by Iris: Yes Documenting Scribe: Jefry Navarro Provider For Whom Iris is Documenting (Include Credential): Nirmal Smith MD Scribe Attestation: Jefry Carter, scribed for Nirmal Smith MD on 04/04/18 at 0656. Scribe Documentation Reviewed: Yes Provider Attestation: The documentation as recorded by the Jefry shafer accurately reflects the service I personally performed and the decisions made by Nirmal mejia MD Status of Scribbarbie Document: Viewed
[2018-04-04 00:55] LABS: ABS Basophils 0.1 10^3/ul (0-0.2); ABS Eosinophils 0.4 10^3/ul (0-0.6); ABS Lymphocytes 2.5 10^3/ul (1.0-4.8); ABS Monocytes 0.5 10^3/ul (0-0.8); ABS Neutrophils 2.5 10^3/ul (1.5-7.7); ABS Nucleated RBC 0 10^3/ul; Eosinophil % 6.9 %; Hematocrit 42 % (42-52); Hemoglobin 14.6 g/dl (14.0-18.0); Lymphocyte % 41.8 %; Mean Corpuscular HGB Conc 35 g/dl (31-36); Mean Corpuscular Hemoglobin 30 pg (27-31); Mean Corpuscular Volume 87 fL (80-94); Mean Platelet Volume 7.4 fL (7.4-10.4); Nucleated Red Blood Cells % 0; Platelet Count 221 10^3/ul (150-450); Red Blood Count 4.85 10^6/ul (4.00-5.40); Red Cell Distribution Width 13 % (10.5-15); White Blood Count 5.9 10^3/ul (3.5-10.8)
[2018-04-04 01:11] LABS: BUN/Creatinine Ratio 21.5 (8-20); Calcium 9.3 mg/dL (8.6-10.3); EGFR Non-African American 103.6 (>60); Potassium 3.9 mmol/L (3.5-5.0)
[2018-04-04 01:48] LABS: Urine Appearance Clear; Urine Bilirubin Negative (Negative); Urine Blood Negative (Negative); Urine Color Yellow; Urine Glucose Negative (Negative); Urine Ketones Negative (Negative); Urine Nitrite Negative (Negative); Urine Protein Negative (Negative); Urine Specific Gravity 1.027 (1.010-1.030); Urine Urobilinogen Negative (Negative)
[2018-04-04 04:41] VITALS: BP 134/84
== END 2018-04-04 04:40 | disposition home or self-care (01) ==
LOC: ED 00:26
DX: R10.84 Generalized abdominal pain (principal); F17.210 Nicotine dependence, cigarettes, uncomplicated
CPT/HCPCS: 36415; 74176; 80048; 81003; 85025; 99282

== ENCOUNTER 2018-06-10 08:15 | Emergency (ER) | payer MEDICAID ==
[2018-06-10 08:56] LABS: ABS Basophils 0 10^3/ul (0-0.2); ABS Eosinophils 0.3 10^3/ul (0-0.6); ABS Monocytes 0.6 10^3/ul (0-0.8); ABS Neutrophils 2.1 10^3/ul (1.5-7.7); ABS Nucleated RBC 0 10^3/ul; Eosinophil % 5.5 %; Hematocrit 43 % (42-52); Hemoglobin 14.8 g/dl (14.0-18.0); Lymphocyte % 49.8 %; Mean Corpuscular HGB Conc 34 g/dl (31-36); Mean Corpuscular Hemoglobin 30 pg (27-31); Mean Corpuscular Volume 87 fL (80-94); Mean Platelet Volume 7.8 fL (7.4-10.4); Nucleated Red Blood Cells % 0.1; Platelet Count 205 10^3/ul (150-450); Red Blood Count 4.98 10^6/ul (4.00-5.40); Red Cell Distribution Width 13 % (10.5-15); White Blood Count 6.1 10^3/ul (3.5-10.8)
[2018-06-10 09:02] LABS: INR 1.03 (0.77-1.02)
[2018-06-10 09:03] LABS: Influenza A Molecular NEGATIVE (Negative); Influenza B Molecular NEGATIVE (Negative)
[2018-06-10 09:08] LABS: Albumin 4.4 g/dL (3.2-5.2); Albumin/Globulin Ratio 2.1 (1-3); BUN/Creatinine Ratio 19.1 (8-20); Calcium 9.2 mg/dL (8.6-10.3); EGFR African American 131.9 (>60); Globulin 2.1 g/dL (2-4); Magnesium 1.9 mg/dL (1.9-2.7); Potassium 3.5 mmol/L (3.5-5.0); Total Bilirubin 0.6 mg/dL (0.2-1.0); Total Protein 6.5 g/dL (6.4-8.9)
[2018-06-10] MEDS ORDERED: Ibuprofen TAB* 600 MG PO ONE (09:41)
[2018-06-10 10:05] VITALS: BP 114/73
--- NOTE | 2018-06-10 10:15 | ED ---
Shortness of Breath - HPI Summary HPI Summary: Patient is a 18-year-old male smoker presenting to the ED with acute onset shortness of breath and chest pain with cough since this morning. He denies any fevers, however his endorsing sweats and chills intermittently since this morning. He denies any known sick contacts. He denies any cardiac or lung disease. He takes no medications. He states he was previously on bipolar medications, but discontinued these over a year ago. Symptoms are not worse or better with rest or exertion. Symptoms are not worse with lying flat or better with sitting upright. - History of Current Complaint Chief Complaint: EDShortnessOfBreath Time Seen by Provider: 06/10/18 08:22 Hx Obtained From: Patient Onset/Duration: Sudden Onset Timing: Constant Current Severity: Mild Dyspnea At: Rest Associated Signs & Symptoms: Negative - Risk Factors Pulmonary Embolism: Smoking Cardiac: Smoking Tuberculosis: Negative - Allergy/Home Medications Allergies/Adverse Reactions: Allergies Allergy/AdvReac Type Severity Reaction Status Date / Time No Known Allergies Allergy Verified 03/19/18 10:55 Home Medications: Home Medications NK [No Home Medications Reported] 06/10/18 [History Confirmed 06/10/18] PMH/Surg Hx/FS Hx/Imm Hx Previously Healthy: Yes Endocrine/Hematology History: Denies: Hx Anemia Cardiovascular History: Denies: Hx Hypertension, Other Cardiovascular Problems/Disorders - PT CLAIMS TO HAVE HEART PROBLEMS OF UNSPECIFIED TYPE Respiratory History: Denies: Hx Asthma Sensory History: Denies: Hx Contacts or Glasses, Hx Hearing Aid Opthamlomology History: Denies: Hx Contacts or Glasses Neurological History: Reports: Hx 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 on 05/15/2016, Hx Seizures Psychiatric History: Reports: Hx Anxiety, Hx Depression, Hx Post Traumatic Stress Disorder, Hx Inpatient Treatment, Hx Community Mental Health Tx, Hx Bipolar Disorder, Hx of Violent Episodes Against Others, Hx Substance Abuse, Other Psychiatric Issues/Disorders - ODD Denies: Hx Eating Disorder, Hx Panic Disorder, Hx Schizophrenia, Hx Suicide Attempt - Surgical History Surgery Procedure, Year, and Place: undescended testicle - Immunization History Hx Pertussis Vaccination: No Immunizations Up to Date: Yes Infectious Disease History: No Infectious Disease History: Denies: Hx Clostridium Difficile, Hx Hepatitis, Hx Human Immunodeficiency Virus (HIV), Hx of Known/Suspected MRSA, Hx Shingles, Hx Tuberculosis, Hx Known/ Suspected VRE, Hx Known/Suspected VRSA, History Other Infectious Disease, Traveled Outside the [place] in Last 30 Days - Family History Known Family History: Positive: Cardiac Disease - Dad with [place] x 4, Other - SI and suicide - brother. Schizophrenia and bipolar positive to father Negative: Hypertension, Diabetes - Social History Occupation: Unemployed Lives: With Family Alcohol Use: None Alcohol Amount: has not been drinking while on probation Hx Substance Use: Yes - denies using as of 05/15/2016 Substance Use Type: Reports: Cocaine, Marijuana, Other Substance Use Comment - Amount & Last Used: none in 6 months d/t probation Hx Tobacco Use: No Smoking Status (MU): Heavy Every Day Tobacco Smoker Type: Cigarettes Review of Systems Constitutional: Negative Negative: Fever, Chills, Fatigue, Skin Diaphoresis Positive: Chest Pain Positive: Shortness Of Breath, Cough Negative: Abdominal Pain, Vomiting, Diarrhea, Nausea Genitourinary: Negative Positive: no symptoms reported, see HPI Negative: Arthralgia, Myalgia Negative: Headache All Other Systems Reviewed And Are Negative: Yes Physical Exam Triage Information Reviewed: Yes Vital Signs On Initial Exam: Initial Vitals Temp Pulse Resp BP Pulse Ox 97.8 F 67 16 108/66 92 06/10/18 08:21 06/10/18 08:21 06/10/18 08:21 06/10/18 08:21 06/10/18 08:21 Vital Signs Reviewed: Yes Appearance: Positive: Well-Appearing, Well-Nourished Skin: Positive: Warm, Skin Color Reflects Adequate Perfusion Head/Face: Positive: Normal Head/Face Inspection Eyes: Positive: EOMI, VICKY, Conjunctiva Clear Neck: Positive: Supple, Nontender, No Lymphadenopathy Respiratory/Lung Sounds: Positive: Clear to Auscultation, Breath Sounds Present. Negative: Decreased Breath Sounds, Tracheal Deviation, Unable to speak in full sentences Cardiovascular: Positive: RRR, Pulses are Symmetrical in both Upper and Lower Extremities Musculoskeletal: Positive: Normal, Strength/ROM Intact Neurological: Positive: Alert, Oriented to Person Place, Time, Speech Normal Psychiatric: Positive: Normal, Affect/Mood Appropriate Diagnostics - Vital Signs Vital Signs Temp Pulse Resp BP Pulse Ox 06/10/18 10:04 99.1 F 85 16 114/73 96 06/10/18 09:00 56 95 06/10/18 08:30 61 109/71 96 06/10/18 08:24 70 108/66 95 06/10/18 08:21 97.8 F 67 16 108/66 92 - Laboratory Lab Results: Lab Results 06/10/18 06/10/18 06/10/18 Range/Units 08:43 08:43 08:43 WBC 6.1 (3.5-10.8) 10^3/ul RBC 4.98 (4.00-5.40) 10^6/ul Hgb 14.8 (14.0-18.0) g/dl Hct 43 (42-52) % MCV 87 (80-94) fL MCH 30 (27-31) pg MCHC 34 (31-36) g/dl RDW 13 (10.5-15) % Plt Count 205 (150-450) 10^3/ul MPV 7.8 (7.4-10.4) fL Neut % (Auto) 35.0 % Lymph % (Auto) 49.8 % [place] % (Auto) 9.0 % Eos % (Auto) 5.5 % Baso % (Auto) 0.7 % Absolute Neuts (auto) 2.1 (1.5-7.7) 10^3/ul Absolute Lymphs (auto) 3.0 (1.0-4.8) 10^3/ul Absolute Monos (auto) 0.6 (0-0.8) 10^3/ul Absolute Eos (auto) 0.3 (0-0.6) 10^3/ul Absolute Basos (auto) 0 (0-0.2) 10^3/ul Absolute Nucleated RBC 0 10^3/ul Nucleated RBC % 0.1 INR (Anticoag Therapy) 1.03 H (0.77-1.02) D-Dimer, Quantitative < 200 (Less Than 230) ng/mL Sodium 138 (135-145) mmol/L Potassium 3.5 (3.5-5.0) mmol/L Chloride 107 (101-111) mmol/L Carbon Dioxide 23 (22-32) mmol/L Anion Gap 8 (2-11) mmol/L BUN 17 (6-24) mg/dL Creatinine 0.89 (0.67-1.17) mg/dL Est GFR ( Amer) 131.9 (>60) Est GFR (Non-Af Amer) 109.0 (>60) BUN/Creatinine Ratio 19.1 (8-20) Glucose 99 (70-100) mg/dL Lactic Acid (0.5-2.0) mmol/L Calcium 9.2 (8.6-10.3) mg/dL Magnesium 1.9 (1.9-2.7) mg/dL Total Bilirubin 0.60 (0.2-1.0) mg/dL AST 18 (13-39) U/L ALT 22 (7-52) U/L Alkaline Phosphatase 43 (34-104) U/L Troponin I 0.00 (<0.04) ng/mL Total Protein 6.5 (6.4-8.9) g/dL Albumin 4.4 (3.2-5.2) g/dL Globulin 2.1 (2-4) g/dL Albumin/Globulin Ratio 2.1 (1-3) Influenza A (Rapid) (Negative) Influenza B (Rapid) (Negative) 06/10/18 06/10/18 Range/Units 08:43 08:50 WBC (3.5-10.8) 10^3/ul RBC (4.00-5.40) 10^6/ul Hgb (14.0-18.0) g/dl Hct (42-52) % MCV (80-94) fL MCH (27-31) pg MCHC (31-36) g/dl RDW (10.5-15) % Plt Count (150-450) 10^3/ul MPV (7.4-10.4) fL Neut % (Auto) % Lymph % (Auto) % [place] % (Auto) % Eos % (Auto) % Baso % (Auto) % Absolute Neuts (auto) (1.5-7.7) 10^3/ul Absolute Lymphs (auto) (1.0-4.8) 10^3/ul Absolute Monos (auto) (0-0.8) 10^3/ul Absolute Eos (auto) (0-0.6) 10^3/ul Absolute Basos (auto) (0-0.2) 10^3/ul Absolute Nucleated RBC 10^3/ul Nucleated RBC % INR (Anticoag Therapy) (0.77-1.02) D-Dimer, Quantitative (Less Than 230) ng/mL Sodium (135-145) mmol/L Potassium (3.5-5.0) mmol/L Chloride (101-111) mmol/L Carbon Dioxide (22-32) mmol/L Anion Gap (2-11) mmol/L BUN (6-24) mg/dL Creatinine (0.67-1.17) mg/dL Est GFR ( Amer) (>60) Est GFR (Non-Af Amer) (>60) BUN/Creatinine Ratio (8-20) Glucose (70-100) mg/dL Lactic Acid 0.6 (0.5-2.0) mmol/L Calcium (8.6-10.3) mg/dL Magnesium (1.9-2.7) mg/dL Total Bilirubin (0.2-1.0) mg/dL AST (13-39) U/L ALT (7-52) U/L Alkaline Phosphatase (34-104) U/L Troponin I (<0.04) ng/mL Total Protein (6.4-8.9) g/dL Albumin (3.2-5.2) g/dL Globulin (2-4) g/dL Albumin/Globulin Ratio (1-3) Influenza A (Rapid) Negative (Negative) Influenza B (Rapid) Negative (Negative) Result Diagrams: 06/10/18 08:43 06/10/18 08:43 Lab Statement: Any lab studies that have been ordered have been reviewed, and results considered in the medical decision making process. Course/Dx - Course Course Of Treatment: Physical examination, lungs CTA, RRR. Patient appears well and nontoxic appearing. Labs obtained which show no leukocytosis and otherwise unremarkable. Patient is afebrile. Trop 0.00. Chest xray unremarkable. EKG shows sinus arrhythmia. Includes a negative. 99% on room air, respirations 16. Patient will be DC'd with costochondritis versus atypical chest pain. - Diagnoses Differential Diagnosis/HQI/PQRI: Positive: Bronchitis Provider Diagnoses: Atypical chest pain, Costochondral pain Discharge - Sign-Out/Discharge Documenting (check all that apply): Patient Departure Patient Received Moderate/Deep Sedation with Procedure: No - Discharge Plan Condition: Stable Disposition: HOME Patient Education Materials: Costochondritis (ED) Referrals: No Primary Care Phys,NOPCP [Primary Care Provider] - Additional Instructions: Ibuprofen 600mg three times daily as needed for pain Return to the ED for any worsening or changing symptoms - Billing Disposition and Condition Condition: STABLE Disposition: Home
== END 2018-06-10 10:04 | disposition home or self-care (01) ==
LOC: ED 08:15
DX: R07.89 Other chest pain (principal); R07.1 Chest pain on breathing; R06.02 Shortness of breath; R62.50 Unspecified lack of expected normal physiological development in childhood; Z82.49 Family history of ischemic heart disease and other diseases of the circulatory system; Z81.8 Family history of other mental and behavioral disorders; F17.210 Nicotine dependence, cigarettes, uncomplicated
CPT/HCPCS: 36415; 71046; 80053; 83605; 83735; 84484; 85025; 85379; 85610; 93005; 99282

== ENCOUNTER 2018-08-06 11:48 | Emergency (ER) | payer MEDICAID ==
--- NOTE | 2018-08-06 11:59 | ED ---
Complex/Multi-Sys Presentation - HPI Summary HPI Summary: A 18 y/o M brought in by ambulance presents to ED c/o throat tightening onset approx 0800. Associated sx: dyspnea, neck pain, dysphagia, chest "numbness," anxiety. Denies rash, n/v, diarrhea, constipation, pedal edema, fever. Aggravating factors: cough. He has had panic attacks previously and this does not feel the same. No surgeries in the past three months. - History Of Current Complaint Chief Complaint: EDGeneral Time Seen by Provider: 08/06/18 11:54 Hx Obtained From: Patient Onset/Duration: Lasting Hours, Still Present Timing: Constant Severity Currently: Moderate Severity Initially: Moderate Associated Signs And Symptoms: Positive: Other - pos: neck pain, sore throat, dypshagia, dyspnea, anxiety, chest "numbness". neg: rash, constipation. Negative: Edema, Nausea, Vomiting, Diarrhea, Fever - Allergies/Home Medications Allergies/Adverse Reactions: Allergies Allergy/AdvReac Type Severity Reaction Status Date / Time No Known Allergies Allergy Verified 08/06/18 13:11 PMH/Surg Hx/FS Hx/Imm Hx Previously Healthy: No Endocrine/Hematology History: Denies: Hx Anemia Cardiovascular History: Denies: Hx Hypertension, Other Cardiovascular Problems/Disorders - PT CLAIMS TO HAVE HEART PROBLEMS OF UNSPECIFIED TYPE Respiratory History: Denies: Hx Asthma Sensory History: Denies: Hx Contacts or Glasses Opthamlomology History: Denies: Hx Contacts or Glasses Neurological History: Reports: Hx 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 on 05/15/2016, Hx Seizures Psychiatric History: Reports: Hx Anxiety, Hx Depression, Hx Post Traumatic Stress Disorder, Hx Inpatient Treatment, Hx Community Mental Health Tx, Hx Bipolar Disorder, Hx of Violent Episodes Against Others, Hx Substance Abuse, Other Psychiatric Issues/Disorders - ODD Denies: Hx Eating Disorder, Hx Panic Disorder, Hx Schizophrenia, Hx Suicide Attempt - Surgical History Surgery Procedure, Year, and Place: undescended testicle Infectious Disease History: No Infectious Disease History: Denies: Hx Clostridium Difficile, Hx Hepatitis, Hx Human Immunodeficiency Virus (HIV), Hx of Known/Suspected MRSA, Hx Shingles, Hx Tuberculosis, Hx Known/ Suspected VRE, Hx Known/Suspected VRSA, History Other Infectious Disease, Traveled Outside the [place] in Last 30 Days - Family History Known Family History: Positive: Cardiac Disease - Dad with [place] x 4. , Other - SI and suicide - brother. Schizophrenia and bipolar positive to father Negative: Hypertension, Diabetes - Social History Occupation: Unemployed Lives: Alone Alcohol Use: None Alcohol Amount: has not been drinking while on probation Hx Substance Use: Yes - denies using as of 05/15/2016 Substance Use Type: Reports: Cocaine, Marijuana, Other Substance Use Comment - Amount & Last Used: none in 6 months d/t probation Hx Tobacco Use: Yes Smoking Status (MU): Heavy Every Day Tobacco Smoker Type: Cigarettes Review of Systems Negative: Fever Positive: Sore Throat, Other - pos: dysphagia, throat tightening Positive: Other - pos: chest "numbness" Positive: Other - pos: dyspnea Negative: Vomiting, Nausea, Other - neg: constipation Musculoskeletal: Other - pos: neck pain Negative: Edema Negative: Rash All Other Systems Reviewed And Are Negative: Yes Physical Exam - Summary Physical Exam Summary: Constitutional: Well-developed, Well-nourished, Alert. (-) Distressed Skin: Warm, Dry HENT: Normocephalic; Atraumatic. Pharyngeal erythema. Eyes: Conjunctiva normal Neck: Musculoskeletal ROM normal neck. (-) JVD, (-) Stridor, (-) Tracheal deviation Cardio: Rhythm regular, rate normal, Heart sounds normal; Intact distal pulses; The pedal pulses are 2+ and symmetric. Radial pulses are 2+ and symmetric. (-) Murmur Pulmonary/Chest wall: Effort normal. (-) Respiratory distress, (-) Wheezes, (-) Rales Abd: Soft, (-) tenderness, (-) Distension, (-) Guarding, (-) Rebound Musculoskeletal: (-) Edema Lymph: L anterior cervical tender lymphadenopathy Neuro: Alert, Oriented x3 Psych: Extremely anxious Triage Information Reviewed: Yes Vital Signs On Initial Exam: Initial Vitals Temp Pulse Resp BP Pulse Ox 98.6 F 62 20 131/70 96 08/06/18 11:50 08/06/18 11:50 08/06/18 11:50 08/06/18 11:50 08/06/18 11:50 Vital Signs Reviewed: Yes Diagnostics - Vital Signs Vital Signs Temp Pulse Resp BP Pulse Ox 08/06/18 11:50 98.6 F 62 20 131/70 96 - Laboratory Result Diagrams: 08/06/18 12:38 08/06/18 12:38 Lab Statement: Any lab studies that have been ordered have been reviewed, and results considered in the medical decision making process. - Radiology CXR Radiology Interpretation Completed By: Radiologist Summary of Radiographic Findings: IMPRESSION: No active cardiopulmonary disease is noted. ED provider has reviewed this report. - EKG 1204 Cardiac Rate: NL - 62 bpm EKG Rhythm: Sinus Rhythm ST Segment: Normal Summary of EKG Findings: Normal sinus rhythm at 62 bpm, normal OH, normal QRS, normal QTc, normal axis, normal ST, normal T-waves, normal EKG. Complex Multi-Symp Course/Dx Course Of Treatment: Pt is a 18 y/o M presenting with throat tightening onset approx 0800. Associated sx: dyspnea, neck pain, dysphagia, chest "numbness," anxiety. Denies rash, n/v, diarrhea, constipation, pedal edema, fever. He has had panic attacks previously and this does not feel the same. Strep is negative. Lab work in unremarkable for significant abnormality. CXR shows no active cardiopulmonary dz. Normal EKG: Normal sinus rhythm at 62 bpm, normal OH , normal QRS, normal QTc, normal axis, normal ST, normal T-waves. Patient will be discharged home to follow up with PCP. - Diagnoses Provider Diagnoses: Anxiety, URI (upper respiratory infection) Discharge - Sign-Out/Discharge Documenting (check all that apply): Patient Departure - D/C Patient Received Moderate/Deep Sedation with Procedure: No - Discharge Plan Condition: Stable Disposition: HOME Patient Education Materials: Upper Respiratory Infection (ED), Generalized Anxiety Disorder (ED), Shortness of Breath (ED) Print Language: BHUTANESE Referrals: [facility] [Outside] No Primary Care Phys,NOPCP [Primary Care Provider] - - Billing Disposition and Condition Condition: STABLE Disposition: Home - Attestation Statements Document Initiated by Scribe: Yes Documenting Scribe: Candy Singh Provider For Whom Scribe is Documenting (Include Credential): Dr. Marcy Chapin MD Scribe Attestation: Candy Carter, scribed for Dr. Marcy Chapin MD on at 1601. Scribe Documentation Reviewed: Yes Provider Attestation: The documentation as recorded by the scribe, Candy Singh accurately reflects the service I personally performed and the decisions made by me, Dr. Marcy Chapin MD Status of Scribe Document: Viewed
[2018-08-06 12:56] LABS: ABS Eosinophils 0.2 10^3/ul (0-0.6); ABS Lymphocytes 1.6 10^3/ul (1.0-4.8); ABS Monocytes 0.4 10^3/ul (0-0.8); ABS Neutrophils 2.5 10^3/ul (1.5-7.7); Eosinophil % 3.6 %; Hematocrit 42 % (42-52); Hemoglobin 14.7 g/dL (14.0-18.0); Mean Corpuscular HGB Conc 35 g/dL (31-36); Mean Corpuscular Hemoglobin 30 pg (27-31); Mean Corpuscular Volume 86 fL (80-94); Mean Platelet Volume 7.6 fL (7.4-10.4); Nucleated Red Blood Cells % 0.1; Platelet Count 207 10^3/uL (150-450); Red Blood Count 4.89 10^6 /uL (4.18-5.48); Red Cell Distribution Width 13 % (10.5-15); White Blood Count 4.8 10^3/uL (3.5-10.8)
[2018-08-06 13:00] LABS: Rapid Strep Molecular Negative (Negative)
[2018-08-06 13:19] LABS: Albumin 4.5 g/dL (3.2-5.2); Albumin/Globulin Ratio 1.9 (1-3); BUN/Creatinine Ratio 13.3 (8-20); Calcium 9.3 mg/dL (8.6-10.3); EGFR African American 130.2 (>60); EGFR Non-African American 107.6 (>60); Globulin 2.4 g/dL (2-4); Potassium 3.8 mmol/L (3.5-5.0); Total Bilirubin 0.5 mg/dL (0.2-1.0); Total Protein 6.9 g/dL (6.4-8.9)
[2018-08-06 13:56] VITALS: BP 132/88
== END 2018-08-06 13:55 | disposition home or self-care (01) ==
LOC: ED 11:48
DX: F41.9 Anxiety disorder, unspecified (principal); J06.9 Acute upper respiratory infection, unspecified; F32.9 Major depressive disorder, single episode, unspecified; F17.210 Nicotine dependence, cigarettes, uncomplicated
CPT/HCPCS: 36415; 71045; 80053; 83605; 84484; 85025; 86703; 87651; 93005; 99282

== ENCOUNTER 2018-08-08 08:01 | Emergency (ER) | payer MEDICAID ==
[2018-08-08 09:24] VITALS: BP 0/0
--- NOTE | 2018-08-08 15:20 | ED ---
Psychiatric Complaint - HPI Summary HPI Summary: Patient is a 18-year-old male presenting to the ED with feelings of chest tightness, palpitations and throat closing. He states he has been having this off and on for several weeks. He states he took a walk is morning to try to relieve some of the symptoms as he knows this is anxiety, however this is worsened. [place] the [place] and they gave him Benadryl. He states he was upset by this as he knew this was not a allergic reaction, however possible panic attack. Patient is a heavy smoker, drug user and was recently seen for same yesterday. - History Of Current Complaint Chief Complaint: EDAllergicReaction Time Seen by Provider: 08/08/18 08:16 Hx Obtained From: Patient Onset/Duration: Sudden Onset Timing: Constant Severity Initially: Moderate Severity Currently: Mild Character: Anxious Aggravating Factor(s): Recent Stress Alleviating Factor(s): Nothing Associated Signs And Symptoms: Positive: Negative Related History: Positive For: Prior Psychiatric Issues - Risk Factor(s) Completed Suicide Risk Factors: Male, White [place] - Allergies/Home Medications Allergies/Adverse Reactions: Allergies Allergy/AdvReac Type Severity Reaction Status Date / Time No Known Allergies Allergy Verified 08/06/18 13:11 PMH/Surg Hx/FS Hx/Imm Hx Previously Healthy: Yes Endocrine/Hematology History: Denies: Hx Anemia Cardiovascular History: Denies: Hx Hypertension, Other Cardiovascular Problems/Disorders - PT CLAIMS TO HAVE HEART PROBLEMS OF UNSPECIFIED TYPE Respiratory History: Denies: Hx Asthma Sensory History: Denies: Hx Contacts or Glasses Opthamlomology History: Denies: Hx Contacts or Glasses Neurological History: Reports: Hx 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 on 05/15/2016, Hx Seizures Psychiatric History: Reports: Hx Anxiety, Hx Depression, Hx Post Traumatic Stress Disorder, Hx Inpatient Treatment, Hx Community Mental Health Tx, Hx Bipolar Disorder, Hx of Violent Episodes Against Others, Hx Substance Abuse, Other Psychiatric Issues/Disorders - ODD Denies: Hx Eating Disorder, Hx Panic Disorder, Hx Schizophrenia, Hx Suicide Attempt - Surgical History Surgery Procedure, Year, and Place: undescended testicle - Immunization History Hx Pertussis Vaccination: No Immunizations Up to Date: Yes Infectious Disease History: No Infectious Disease History: Denies: Hx Clostridium Difficile, Hx Hepatitis, Hx Human Immunodeficiency Virus (HIV), Hx of Known/Suspected MRSA, Hx Shingles, Hx Tuberculosis, Hx Known/ Suspected VRE, Hx Known/Suspected VRSA, History Other Infectious Disease, Traveled Outside the [place] in Last 30 Days - Family History Known Family History: Positive: Cardiac Disease - Dad with [place] x 4. , Other - SI and suicide - brother. Schizophrenia and bipolar positive to father Negative: Hypertension, Diabetes - Social History Occupation: Unemployed Lives: With Family Alcohol Use: Rare Alcohol Amount: has not been drinking while on probation Hx Substance Use: Yes - denies using as of 05/15/2016 Substance Use Type: Reports: Cocaine, Marijuana, Other Substance Use Comment - Amount & Last Used: none in 6 months d/t probation Hx Tobacco Use: Yes Smoking Status (MU): Heavy Every Day Tobacco Smoker Type: Cigarettes Review of Systems Negative: Fever, Chills, Fatigue, Skin Diaphoresis Negative: Dental Pain, Sore Throat Positive: Chest Pain Negative: Shortness Of Breath, Cough Genitourinary: Negative Positive: no symptoms reported, see HPI Positive: Arthralgia, Myalgia Skin: Negative Neurological: Negative Positive: Anxious All Other Systems Reviewed And Are Negative: Yes Physical Exam Triage Information Reviewed: Yes Vital Signs On Initial Exam: Initial Vitals Temp Pulse Resp BP Pulse Ox 99.1 F 68 16 135/90 96 08/08/18 08:14 08/08/18 08:14 08/08/18 08:14 08/08/18 08:14 08/08/18 08:14 Vital Signs Reviewed: Yes Appearance: Positive: Well-Appearing, Well-Nourished Skin: Positive: Skin Color Reflects Adequate Perfusion Head/Face: Positive: Normal Head/Face Inspection Eyes: Positive: EOMI, VICKY Neck: Positive: Supple, No Lymphadenopathy Respiratory/Lung Sounds: Positive: Clear to Auscultation Cardiovascular: Positive: RRR, Pulses are Symmetrical in both Upper and Lower Extremities Musculoskeletal: Positive: Normal, Strength/ROM Intact Psychiatric: Positive: Anxious Diagnostics - Vital Signs Vital Signs Temp Pulse Resp BP Pulse Ox 08/08/18 09:22 0 F 0 20 0/0 0 08/08/18 08:25 98 17 143/100 99 08/08/18 08:24 94 15 97 08/08/18 08:14 99.1 F 68 16 135/90 96 - Laboratory Lab Statement: Any lab studies that have been ordered have been reviewed, and results considered in the medical decision making process. Course/Dx - Course Course Of Treatment: On arrival into the ED, the patient appears well. He appears anxious. He states he is upset that he was given Benadryl and once the IV taken out. The IV was taken out of bedside. I discussed with the patient a full workup was completed yesterday for his chest tightness and throat tightness symptoms related to his anxiety. He arrives with cardiac monitoring which appears normal. I discussed with the patient at length regarding his anxiety symptoms. Patient is ambulating well and would like to go home at this time. He is okay for discharge at this time and he will return if he has any worsening symptoms. - Differential Dx/Clinical Impression Provider Diagnosis: Anxiety Discharge - Sign-Out/Discharge Documenting (check all that apply): Patient Departure Patient Received Moderate/Deep Sedation with Procedure: No - Discharge Plan Condition: Stable Disposition: HOME Patient Education Materials: Anxiety (ED) Referrals: [facility] [Outside] - 2 Weeks (Your CAP Wood Inspector, Susana, will update you with your new appointment date and time. Please bring insurance card and photo ID to this appointment.) No Primary Care Phys,NOPCP [Primary Care Provider] - - Billing Disposition and Condition Condition: STABLE Disposition: Home
== END 2018-08-08 09:22 | disposition home or self-care (01) ==
LOC: ED 08:01
DX: F41.9 Anxiety disorder, unspecified (principal); R62.50 Unspecified lack of expected normal physiological development in childhood; F17.210 Nicotine dependence, cigarettes, uncomplicated
CPT/HCPCS: 99282

== ENCOUNTER → 2018-08-10 | Emergency (ER) | payer MEDICAID ==
[~2018-08-10] MED LIST changes: -Haloperidol INJ IV/IM* 5 MG/ML AMP IM ONE; -LORazepam INJ* 2 MG/ML 1 ML VIAL IM ONE; -diPHENhydraMINE IV* 50 MG/ML 1 ml VIAL (BENADRYL) IM ONE; +hydrOXYzine HCL TAB* 25 MG PO ONE
--- NOTE | 2018-08-10 00:49 | ED ---
Complex/Multi-Sys Presentation - HPI Summary HPI Summary: 18-year-old male presents with what he believes is a panic attack. He states his throat is closing up. He denies any new soaps or products. Did not drink or eat anything different. He states this has happened before. He states he was having a panic attack the previous time it happened. He says feels very anxious. He denies any suicidal or homicidal thoughts. He admits occasional shortness of breath and palpitations. He has no medical conditions. He denies any drug use. He states he is here for anxiety medication. - History Of Current Complaint Chief Complaint: EDThroatPain Time Seen by Provider: 08/10/18 00:30 - Allergies/Home Medications Allergies/Adverse Reactions: Allergies Allergy/AdvReac Type Severity Reaction Status Date / Time No Known Allergies Allergy Verified 08/06/18 13:11 PMH/Surg Hx/FS Hx/Imm Hx Endocrine/Hematology History: Denies: Hx Anemia Cardiovascular History: Denies: Hx Hypertension, Other Cardiovascular Problems/Disorders - PT CLAIMS TO HAVE HEART PROBLEMS OF UNSPECIFIED TYPE Respiratory History: Denies: Hx Asthma Sensory History: Denies: Hx Contacts or Glasses Opthamlomology History: Denies: Hx Contacts or Glasses Neurological History: Reports: Hx 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 on 05/15/2016, Hx Seizures Psychiatric History: Reports: Hx Anxiety, Hx Depression, Hx Post Traumatic Stress Disorder, Hx Inpatient Treatment, Hx Community Mental Health Tx, Hx Bipolar Disorder, Hx of Violent Episodes Against Others, Hx Substance Abuse, Other Psychiatric Issues/Disorders - ODD Denies: Hx Eating Disorder, Hx Panic Disorder, Hx Schizophrenia, Hx Suicide Attempt - Surgical History Surgery Procedure, Year, and Place: undescended testicle Infectious Disease History: No Infectious Disease History: Denies: Hx Clostridium Difficile, Hx Hepatitis, Hx Human Immunodeficiency Virus (HIV), Hx of Known/Suspected MRSA, Hx Shingles, Hx Tuberculosis, Hx Known/ Suspected VRE, Hx Known/Suspected VRSA, History Other Infectious Disease, Traveled Outside the [place] in Last 30 Days - Family History Known Family History: Positive: Cardiac Disease - Dad with [place] x 4. , Other - SI and suicide - brother. Schizophrenia and bipolar positive to father Negative: Hypertension, Diabetes - Social History Alcohol Use: Rare Alcohol Amount: has not been drinking while on probation Hx Substance Use: Yes - denies using as of 05/15/2016 Substance Use Type: Reports: Cocaine, Marijuana, Other Substance Use Comment - Amount & Last Used: none in 6 months d/t probation Hx Tobacco Use: Yes Smoking Status (MU): Heavy Every Day Tobacco Smoker Type: Cigarettes Review of Systems Negative: Fever Positive: Sore Throat Negative: Chest Pain Negative: Shortness Of Breath Positive: Anxious All Other Systems Reviewed And Are Negative: Yes Physical Exam Triage Information Reviewed: Yes Vital Signs On Initial Exam: Initial Vitals Temp Pulse Resp BP Pulse Ox 98.6 F 96 20 152/97 96 08/10/18 00:01 08/10/18 00:01 08/10/18 00:01 08/10/18 00:01 08/10/18 00:01 Vital Signs Reviewed: Yes Appearance: Positive: Well-Appearing Skin: Positive: Warm, Dry Head/Face: Positive: Normal Head/Face Inspection Eyes: Positive: Normal, EOMI, VICKY, Conjunctiva Clear ENT: Positive: Pharynx normal, TMs normal Respiratory/Lung Sounds: Positive: Clear to Auscultation, Breath Sounds Present Cardiovascular: Positive: Normal, RRR Abdomen Description: Positive: Nontender, Soft Bowel Sounds: Positive: Present Musculoskeletal: Positive: Normal Neurological: Positive: Normal Psychiatric: Positive: Anxious Diagnostics - Vital Signs Vital Signs Temp Pulse Resp BP Pulse Ox 08/10/18 00:33 87 96 08/10/18 00:01 98.6 F 96 20 152/97 96 - Laboratory Lab Statement: Any lab studies that have been ordered have been reviewed, and results considered in the medical decision making process. Re-Evaluation - Re-Evaluation First Eval Re-Evaluation Time: 00:53 Comment: states wants a sandwich and food with throat closing up per patient Complex Multi-Symp Course/Dx Course Of Treatment: 18-year-old male presents with what he believes is a panic attack. He states his throat is closing up. He denies any new soaps or products. Did not drink or eat anything different. He states this has happened before. He states he was having a panic attack the previous time it happened. He says feels very anxious. He denies any suicidal or homicidal thoughts. He admits occasional shortness of breath and palpitations. He has no medical conditions. He denies any drug use. He states he is here for anxiety medication. On exam pharynx normal. lungs CTA. Patient appears anxious. Vital stable. Will prescribe Atarax. Patient understands agrees with plan. - Diagnoses Differential Diagnoses/HQI/PQRI: Other - pharyngitis, allergic reaction, pharynx normal Provider Diagnoses: Anxiety Discharge - Sign-Out/Discharge Documenting (check all that apply): Patient Departure Patient Received Moderate/Deep Sedation with Procedure: No - Discharge Plan Condition: Good Disposition: HOME Prescriptions: hydrOXYzine HCL TAB* [Atarax 25 MG TAB*] 25 mg PO TID PRN #15 tab PRN Reason: Anxiety Patient Education Materials: Anxiety (ED) Referrals: No Primary Care Phys,NOPCP [Primary Care Provider] - Additional Instructions: Practice deep breathing Take hydroxyzine up to three tablets daily Follow up with primary Return to ED if develop any new or worsening symptoms - Billing Disposition and Condition Condition: GOOD Disposition: Home
[2018-08-10 00:57] VITALS: BP 134/78
== END | disposition home or self-care (01) ==
LOC: ED
DX: F41.0 Panic disorder [episodic paroxysmal anxiety] (principal); F17.210 Nicotine dependence, cigarettes, uncomplicated; J02.9 Acute pharyngitis, unspecified; F41.9 Anxiety disorder, unspecified; F43.10 Post-traumatic stress disorder, unspecified; X58.XXXA Exposure to other specified factors, initial encounter; Y92.9 Unspecified place or not applicable
CPT/HCPCS: 99282; A9270-GY

== ENCOUNTER 2019-02-12 14:24 | Emergency (ER) | payer MEDICAID ==
[2019-02-12 14:30] VITALS: BP 138/86
[2019-02-12] MEDS ORDERED: Lidocaine 1% INJ* 10 MG/ML 30 ML SDV INJ ONE (15:12)
[2019-02-12] MEDS ORDERED: Cephalexin CAP* 500 MG PO ONE (15:12)
--- NOTE | 2019-02-12 15:22 | ED ---
Skin Complaint - HPI Summary HPI Summary: Patient is a 18 y/o M presenting to the ED for a chief complaint of swelling, erythema, and pain in the middle finger of the right hand. Patient is present with a friend. Patient believes he has an ingrown nail. He also states he slipped and fell on the knuckle of his right hand and has ecchymosis to the right knuckle. Patient denies fever. Patient denies any aggravating or alleviating factors. Allergies noted. Medications reviewed. - History of Current Complaint Chief Complaint: EDGeneral Time Seen by Provider: 02/12/19 14:41 Stated Complaint: POSS INF ON FINGER PER PT Hx Obtained From: Patient Onset/Duration: Still Present Skin Exposure Onset/Duration: Days Ago Timing: Constant Onset Severity: Severe Current Severity: Moderate Pain Intensity: 10 Pain Scale Used: 0-10 Numeric Skin Location: Hand - Middle finger of the left hand Character: Swelling, Pain, Redness, Painful Aggravating Symptom(s): Nothing Alleviating Symptom(s): Nothing Associated Signs & Symptoms: Negative Related History: Trauma - Fall to knuckle of right hand, Other: - Ingrown nail of right hand - Additional Pertinent History Primary Care Physician: [id number] - Allergy/Home Medications Allergies/Adverse Reactions: Allergies Allergy/AdvReac Type Severity Reaction Status Date / Time No Known Allergies Allergy Verified 02/12/19 14:31 PMH/Surg Hx/FS Hx/Imm Hx Previously Healthy: Yes Endocrine/Hematology History: Denies: Hx Diabetes, Hx Anemia Cardiovascular History: Denies: Hx Hypercholesterolemia, Hx Hypertension, Other Cardiovascular Problems/Disorders - PT CLAIMS TO HAVE HEART PROBLEMS OF UNSPECIFIED TYPE Respiratory History: Denies: Hx Asthma Sensory History: Denies: Hx Contacts or Glasses, Hx Legally Blind, Hx Deafness Opthamlomology History: Denies: Hx Contacts or Glasses, Hx Legally Blind EENT History: Denies: Hx Deafness Neurological History: Reports: Hx 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 on 05/15/2016, Hx Seizures Psychiatric History: Reports: Hx Anxiety, Hx Depression, Hx Post Traumatic Stress Disorder, Hx Inpatient Treatment, Hx Community Mental Health Tx, Hx Bipolar Disorder, Hx of Violent Episodes Against Others, Hx Substance Abuse, Other Psychiatric Issues/Disorders - ODD Denies: Hx Eating Disorder, Hx Panic Disorder, Hx Schizophrenia, Hx Suicide Attempt - Surgical History Surgical History: Yes Surgery Procedure, Year, and Place: undescended testicle Infectious Disease History: No Infectious Disease History: Denies: Hx Clostridium Difficile, Hx Hepatitis, Hx Human Immunodeficiency Virus (HIV), Hx of Known/Suspected MRSA, Hx Shingles, Hx Tuberculosis, Hx Known/ Suspected VRE, Hx Known/Suspected VRSA, History Other Infectious Disease, Traveled Outside the [place] in Last 30 Days - Family History Known Family History: Positive: Cardiac Disease - Dad with [place] x 4. , Other - SI and suicide - brother. Schizophrenia and bipolar positive to father Negative: Hypertension, Diabetes - Social History Occupation: Unemployed Lives: With Family Alcohol Use: Rare Alcohol Amount: has not been drinking while on probation Hx Substance Use: Yes - denies using as of 05/15/2016 Substance Use Type: Reports: Cocaine, Marijuana, Other Substance Use Comment - Amount & Last Used: none in 6 months d/t probation Hx Tobacco Use: Yes Smoking Status (MU): Heavy Every Day Tobacco Smoker Type: Cigarettes Review of Systems Negative: Fever Positive: Myalgia - Right finger of left hand, Edema - Fourth finger of right hand Positive: Other - Positive redness of fourth finger of right hand, ecchymosis of knuckle of right hand All Other Systems Reviewed And Are Negative: Yes Physical Exam - Summary Physical Exam Summary: Constitutional: Well-developed, Well-nourished, Alert. (-) Distressed Skin: Warm, Dry. Paronychia forming on the fourth finger on the side, tip of finger with mild surrounding cellulitis and erythema isolated to the distal tip of the DIP joint, good flexion and extension, no involvement of the flexor tendon. Pus collecting at corner of paronychia. Abrasion from a fall at the PIP joint, good pulses and strength. HENT: Normocephalic; Atraumatic Eyes: Conjunctiva normal Neck: Musculoskeletal ROM normal neck. (-) JVD, (-) Stridor, (-) Tracheal deviation Cardio: Rhythm regular, rate normal, Heart sounds normal; Intact distal pulses; The pedal pulses are 2+ and symmetric. Radial pulses are 2+ and symmetric. Pulmonary/Chest wall: Effort normal. (-) Respiratory distress, (-) Wheezes, (-) Rales Abd: Soft, (-) tenderness, (-) Distension, (-) Guarding, (-) Rebound Musculoskeletal: (-) Edema Neuro: Alert, Oriented x3 Psych: Mood and affect Normal Triage Information Reviewed: Yes Vital Signs On Initial Exam: Initial Vitals Temp Pulse Resp BP Pulse Ox 98.2 F 86 18 138/86 97 02/12/19 14:28 02/12/19 14:28 02/12/19 14:28 02/12/19 14:28 02/12/19 14:28 Vital Signs Reviewed: Yes Procedures - Procedure Summary Procedure Summary: I&D: Digital finger block of right fourth finger, single incision into paronychia with drainage of pus, drained well. - Sedation Patient Received Moderate/Deep Sedation with Procedure: No - Incision and Drainage Right Finger Site: Right fourth digit Anesthesia: Digital Instrument(s): Scalpel Packing: Drain Diagnostics - Vital Signs Vital Signs Temp Pulse Resp BP Pulse Ox 02/12/19 14:28 98.2 F 86 18 138/86 97 - Laboratory Lab Statement: Any lab studies that have been ordered have been reviewed, and results considered in the medical decision making process. Course/Dx - Course Course Of Treatment: Patient is a 18 y/o M presenting to the ED for a chief complaint of swelling, erythema, and pain in the middle finger of the right hand. Patient is present with a friend. Patient believes he has an ingrown nail. He also states he slipped and fell on the knuckle of his right hand and has ecchymosis to the right knuckle. Patient denies fever. Patient denies any aggravating or alleviating factors. Allergies noted. Medications reviewed. On exam, paronychia forming on the fourth finger on the side, tip of finger with mild surrounding cellulitis and erythema isolated to the distal tip of the DIP joint, good flexion and extension, no involvement of the flexor tendon. Pus collecting at corner of paronychia. Abrasion from a fall at the PIP joint, good pulses and strength. In the ED course, patient was given lidocaine 1% 1 mg INJ and cephalexin 500 mg PO. I&D procedure: Digital finger block of right fourth finger, single incision into paronychia with drainage of pus, drained well. Patient will be discharged with a diagnosis of paronychia and a prescription for cephalexin 500 mg PO. Follow up with [facility] in 2-3 days for wound check. - Diagnoses Provider Diagnoses: Paronychia Discharge ED - Sign-Out/Discharge Documenting (check all that apply): Patient Departure - Discharge - Discharge Plan Condition: Stable Disposition: HOME Prescriptions: Cephalexin CAP* [Keflex CAP*] 500 mg PO QID 7 Days #27 cap Patient Education Materials: Paronychia (ED) Referrals: [facility] [Outside] Additional Instructions: Follow up with [facility] for a wound check in 2-3 days. Return to the Emergency Department for changing or worsening symptoms. - Billing Disposition and Condition Condition: STABLE Disposition: Home - Attestation Statements Document Initiated by Scribe: Yes Documenting Scribe: Radha Becerra Provider For Whom Scribe is Documenting (Include Credential): Jose Luis Espino MD Scribe Attestation: Radha Carter scribed for Jose Luis Espino MD on 02/12/19 at 1752. Scribe Documentation Reviewed: Yes Provider Attestation: The documentation as recorded by the Radha shafer accurately reflects the service I personally performed and the decisions made by Jose Luis mejia MD Status of Scribe Document: Viewed
== END 2019-02-12 15:25 | disposition home or self-care (01) ==
LOC: ED 14:24
DX: L03.011 Cellulitis of right finger (principal); F41.9 Anxiety disorder, unspecified; F32.9 Major depressive disorder, single episode, unspecified; R62.50 Unspecified lack of expected normal physiological development in childhood; F17.210 Nicotine dependence, cigarettes, uncomplicated
CPT/HCPCS: 10060; 99282; A9270-GY

== ENCOUNTER 2019-04-12 17:55 | Emergency (ER) | payer MEDICAID ==
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
[2019-04-12 19:06] VITALS: BP 142/74
== END 2019-04-12 19:03 | disposition home or self-care (01) ==
LOC: ED 17:55
DX: M79.641 Pain in right hand (principal); R62.50 Unspecified lack of expected normal physiological development in childhood; F41.9 Anxiety disorder, unspecified; F43.10 Post-traumatic stress disorder, unspecified; F31.9 Bipolar disorder, unspecified; F17.210 Nicotine dependence, cigarettes, uncomplicated
CPT/HCPCS: 99282

== ENCOUNTER 2019-06-15 17:44 | Emergency (ER) | payer MEDICAID ==
[2019-06-15 17:58] VITALS: BP 140/84
[2019-06-15 18:22] LABS: Urine Appearance Clear; Urine Bilirubin Negative (Negative); Urine Blood Negative (Negative); Urine Color Amber; Urine Glucose Negative (Negative); Urine Ketones Trace (Negative); Urine Nitrite Negative (Negative); Urine Protein Negative (Negative); Urine Specific Gravity 1.032 (1.010-1.030); Urine Urobilinogen Positive (Negative)
[2019-06-16 13:20] LABS: Chlamydia trachomatis NAA Negative (Negative); Neisseria gonorrhoeae (GC) NAA Negative (Negative)
== END 2019-06-15 18:02 | disposition left against medical advice (07) ==
LOC: ED 17:44
DX: N48.89 Other specified disorders of penis (principal); Z53.21 Procedure and treatment not carried out due to patient leaving prior to being seen by health care provider
CPT/HCPCS: 81003; 87491; 87591; 99281

== ENCOUNTER 2019-06-15 22:00 | Emergency (ER) | payer MEDICAID ==
[2019-06-16] MEDS ORDERED: Acetaminophen TAB* 325 MG PO ONE (00:24)
--- NOTE | 2019-06-16 00:30 | ED ---
Headache - HPI Summary HPI Summary: Patient presented to the ED for burning with urination he states has resolved. Patient now brought by EMS for "feeling lightheaded", "bit of headache" and vision being "a little blurry". Denies fever, dizziness, room spinning, cough, sore throat, CP, SOB, N/V/D, abdominal pain, change in urine, change in BM. Medical history is none. Denies EtOH or recreational drug use. Patient states his "baby mama kicked him out", and he has not eaten or had anything to drink for 3 days. Patient talking on his phone in no apparent distress prior to history of present illness. - History Of Current Complaint Chief Complaint: EDUrogenitalProblems Stated Complaint: HEADACHE PER EMS Time Seen by Provider: 06/16/19 00:15 Hx Obtained From: Patient Onset/Duration: Gradual Onset, Started hours ago Initially Headache Was: Mild Currently Pain Is: Mild Timing: Intermittent, Lasting: Character: Dull Location of Headache: Diffuse Aggravating Factor: Nothing Allevating Factors: Nothing Associated Signs And Symptoms: Visual Changes - Allergies/Home Medications Allergies/Adverse Reactions: Allergies Allergy/AdvReac Type Severity Reaction Status Date / Time No Known Allergies Allergy Verified 06/15/19 22:06 Home Medications: Home Medications NK [No Home Medications Reported] 04/12/19 [History Confirmed 06/15/19] PMH/Surg Hx/FS Hx/Imm Hx Endocrine/Hematology History: Denies: Hx Diabetes, Hx Anemia Cardiovascular History: Denies: Hx Hypercholesterolemia, Hx Hypertension, Other Cardiovascular Problems/Disorders - PT CLAIMS TO HAVE HEART PROBLEMS OF UNSPECIFIED TYPE Respiratory History: Denies: Hx Asthma History: Denies: Hx Dialysis Sensory History: Denies: Hx Contacts or Glasses, Hx Legally Blind, Hx Deafness Opthamlomology History: Denies: Hx Contacts or Glasses, Hx Legally Blind EENT History: Denies: Hx Deafness Neurological History: Reports: Hx 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 on 05/15/2016, Hx Seizures Psychiatric History: Reports: Hx Anxiety, Hx Depression, Hx Post Traumatic Stress Disorder, Hx Inpatient Treatment, Hx Community Mental Health Tx, Hx Bipolar Disorder, Hx of Violent Episodes Against Others, Hx Substance Abuse, Other Psychiatric Issues/Disorders - ODD Denies: Hx Eating Disorder, Hx Panic Disorder, Hx Schizophrenia, Hx Suicide Attempt - Surgical History Surgery Procedure, Year, and Place: undescended testicle - Immunization History Date of Tetanus Vaccine: utd Infectious Disease History: No Infectious Disease History: Denies: Hx Clostridium Difficile, Hx Hepatitis, Hx Human Immunodeficiency Virus (HIV), Hx of Known/Suspected MRSA, Hx Shingles, Hx Tuberculosis, Hx Known/ Suspected VRE, Hx Known/Suspected VRSA, History Other Infectious Disease, Traveled Outside the [place] in Last 30 Days - Family History Known Family History: Positive: Cardiac Disease - Dad with [facility] x 4. , Other - SI and suicide - brother. Schizophrenia and bipolar positive to father Negative: Hypertension, Diabetes - Social History Alcohol Use: Rare Alcohol Amount: has not been drinking while on probation Hx Substance Use: Yes - denies using as of 05/15/2016 Substance Use Type: Reports: Cocaine, Marijuana, Other Substance Use Comment - Amount & Last Used: none in 6 months d/t probation Hx Tobacco Use: Yes Smoking Status (MU): Heavy Every Day Tobacco Smoker Type: Cigarettes Review of Systems Constitutional: Negative Positive: Blurred Vision ENT: Negative Cardiovascular: Negative Respiratory: Negative Gastrointestinal: Negative Genitourinary: Negative Musculoskeletal: Negative Skin: Negative Positive: Headache Psychological: Normal All Other Systems Reviewed And Are Negative: Yes Physical Exam Triage Information Reviewed: Yes Vital Signs On Initial Exam: Initial Vitals Temp Pulse Resp BP Pulse Ox 98.7 F 68 16 140/75 97 06/15/19 22:01 06/15/19 22:01 06/15/19 22:01 06/15/19 22:01 06/15/19 22:01 Vital Signs Reviewed: Yes Appearance: Positive: Well-Appearing Skin: Positive: Warm Head/Face: Positive: Normal Head/Face Inspection Eyes: Positive: Normal, EOMI, VICKY, Conjunctiva Clear ENT: Positive: Normal ENT inspection Neck: Positive: Supple Respiratory/Lung Sounds: Positive: Clear to Auscultation Cardiovascular: Positive: Normal Abdomen Description: Positive: Nontender Musculoskeletal: Positive: Normal Neurological: Positive: Normal Psychiatric: Positive: Normal AVPU Assessment: Alert - [place] Coma Scale Best Eye Response: 4 - Spontaneous Best Motor Response: 6 - Obeys Commands Best Verbal Response: 5 - Oriented Coma Scale Total: 15 Procedures - Sedation Patient Received Moderate/Deep Sedation with Procedure: No Diagnostics - Vital Signs Vital Signs Temp Pulse Resp BP Pulse Ox 06/15/19 22:01 98.7 F 68 16 140/75 97 - Laboratory Lab Statement: Any lab studies that have been ordered have been reviewed, and results considered in the medical decision making process. Headache Course/Dx - Course Course Of Treatment: Patient presented to the ED for burning with urination he states has resolved. Patient now brought by EMS for "feeling lightheaded", " bit of headache" and vision being "a little blurry". Denies fever, dizziness, room spinning, cough, sore throat, CP, SOB, N/V/D, abdominal pain, change in urine, change in BM. Medical history is none. Denies EtOH or recreational drug use. Patient states his "baby mama kicked him out", and he has not eaten or had anything to drink for 3 days. Patient talking on his phone in no apparent distress prior to history of present illness. Vital signs within normal limits. - Diagnoses Provider Diagnoses: Headache, Lightheadedness, Food hunger, Dehydration, mild Discharge ED - Sign-Out/Discharge Documenting (check all that apply): Patient Departure - Discharge Plan Condition: Stable Disposition: HOME Patient Education Materials: Lightheadedness (ED) Referrals: No Primary Care Phys,NOPCP [Primary Care Provider] - Additional Instructions: Drink plenty of fluids to maintain hydration. Eat regularly. Take Tylenol or ibuprofen for headache. Follow-up with primary care. - Billing Disposition and Condition Condition: STABLE Disposition: Home
[2019-06-16 02:00] VITALS: BP 0/0
== END 2019-06-16 01:59 | disposition home or self-care (01) ==
LOC: ED 22:00
DX: H53.8 Other visual disturbances (principal); T73.0XXA Starvation, initial encounter; E86.0 Dehydration; R51 Headache; R42 Dizziness and giddiness; F17.210 Nicotine dependence, cigarettes, uncomplicated
CPT/HCPCS: 99282; A9270-GY

== ENCOUNTER 2019-06-28 16:08 | Emergency (ER) | payer MEDICAID ==
--- NOTE | 2019-06-28 16:14 | ED ---
Psychiatric Complaint - HPI Summary HPI Summary: 19 y/o male presented to [facility] after suicidal and homicidal ideations [employer]. Patient claims he is unable to see his 5 month old child because the mother of his child will not allow him to. He has also been negatively affected by the knowledge that the mother of his child is dating someone else. He specifically claims a desire to "slit someone's throat." Patient claims to be more homicidal than suicidal, but also notes he would rather be in retirement or . Patient claims not to have eaten in 5 days and is only sleeping a couple of hours per night. He also claimed that he was too depressed to work today but his job threatens to fire him for taking off work for depression. He also notes use of cocaine 5 days ago. Per EMS, he was uncooperative on the scene and was giving false information about things like his age. In the room, he was cooperative. - History Of Current Complaint Hx Obtained From: Patient, EMS Onset/Duration: Still Present Timing: Days Character: Depressed, Angry Aggravating Factor(s): Recent Stress Alleviating Factor(s): Nothing Associated Signs And Symptoms: Positive: Appetite Change - not eaten in days Has Suicidal: Reports: Thoughts Has Homicidal: Reports: Thoughts Ingestion History: Amount Ingested - cocaine - Allergies/Home Medications Allergies/Adverse Reactions: Allergies Allergy/AdvReac Type Severity Reaction Status Date / Time No Known Allergies Allergy Verified 06/15/19 22:06 Home Medications: Home Medications NK [No Home Medications Reported] 04/12/19 [History Confirmed 06/28/19] PMH/Surg Hx/FS Hx/Imm Hx Endocrine/Hematology History: Denies: Hx Diabetes, Hx Anemia Cardiovascular History: Denies: Hx Hypercholesterolemia, Hx Hypertension, Other Cardiovascular Problems/Disorders - PT CLAIMS TO HAVE HEART PROBLEMS OF UNSPECIFIED TYPE Respiratory History: Denies: Hx Asthma History: Denies: Hx Dialysis Sensory History: Denies: Hx Contacts or Glasses, Hx Legally Blind, Hx Deafness Opthamlomology History: Denies: Hx Contacts or Glasses, Hx Legally Blind Neurological History: Reports: Hx 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 on 05/15/2016, Hx Seizures Psychiatric History: Reports: Hx Anxiety, Hx Depression, Hx Post Traumatic Stress Disorder, Hx Inpatient Treatment, Hx Community Mental Health Tx, Hx Bipolar Disorder, Hx of Violent Episodes Against Others, Hx Substance Abuse, Other Psychiatric Issues/Disorders - ODD Denies: Hx Eating Disorder, Hx Panic Disorder, Hx Schizophrenia, Hx Suicide Attempt - Surgical History Surgery Procedure, Year, and Place: undescended testicle - Immunization History Date of Tetanus Vaccine: utd Infectious Disease History: Denies: Hx Clostridium Difficile, Hx Hepatitis, Hx Human Immunodeficiency Virus (HIV), Hx of Known/Suspected MRSA, Hx Shingles, Hx Tuberculosis, Hx Known/ Suspected VRE, Hx Known/Suspected VRSA, History Other Infectious Disease - Family History Known Family History: Positive: Cardiac Disease - Dad with [place] x 4. , Other - SI and suicide - brother. Schizophrenia and bipolar positive to father Negative: Hypertension, Diabetes - Social History Alcohol Use: Rare Alcohol Amount: has not been drinking while on probation Hx Substance Use: Yes - denies using as of 05/15/2016 Substance Use Type: Reports: Cocaine, Marijuana, Other Substance Use Comment - Amount & Last Used: none in 6 months d/t probation Hx Tobacco Use: Yes Smoking Status (MU): Heavy Every Day Tobacco Smoker Type: Cigarettes Review of Systems Negative: Fever - vitals show temp at 99.5F Positive: Depressed - wanting to , Other - wanting to slit someone's throat All Other Systems Reviewed And Are Negative: Yes Physical Exam - Summary Physical Exam Summary: VITAL SIGNS: Reviewed. GENERAL: Patient is a well-developed and nourished male who is lying comfortable in the stretcher. Patient is not in any acute respiratory distress. HEAD AND FACE: No signs of trauma. No ecchymosis, hematomas or skull depressions. No sinus tenderness. EYES: PERRL, EOMI x 2, No injected conjunctiva, no nystagmus. EARS: Hearing grossly intact. Ear canals and tympanic membranes are within normal limits. MOUTH: Oropharynx within normal limits. NECK: Supple, trachea is midline, no adenopathy, no JVD, no carotid bruit, no c- spine tenderness, neck with full ROM. CHEST: Symmetric, no tenderness at palpation. LUNGS: Clear to auscultation bilaterally. No wheezing or crackles. CVS: Regular rate and rhythm, S1 and S2 present, no murmurs or gallops appreciated. ABDOMEN: Soft, non-tender. No signs of distention. No rebound, no guarding, and no masses palpated. Bowel sounds are normal. EXTREMITIES: FROM in all major joints, no edema, no cyanosis or clubbing. NEURO: Alert and oriented x 3. No acute neurological deficits. Speech is normal and follows commands. SKIN: Dry and warm. PSYCH: Crying, angry Triage Information Reviewed: Yes Vital Signs Reviewed: Yes Procedures - Sedation Patient Received Moderate/Deep Sedation with Procedure: No Re-Evaluation - Re-Evaluation First Eval Re-Evaluation Time: 17:23 Comment: After MHE, Dr. Alexandre recommends discharge. 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 Patient claims he is unable to see his 5 month old child because the mother of his child will not allow him to. He has also been negatively affected by the knowledge that the mother of his child is dating someone else. He specifically claims a desire to "slit someone's throat." Patient claims to be more homicidal than suicidal, but also notes he would rather be in retirement or . Patient claims not to have eaten in 5 days and is only sleeping a couple of hours per night. He also claimed that he was too depressed to work today but his job threatens to fire him for taking off work for depression. He also notes use of cocaine 5 days ago. Per EMS, he was uncooperative on the scene and was giving false information about things like his age. In the room, he was cooperative. In the ED course the patient was placed in a monitor tech, IV access was obtained, IV fluids started. Past medical records reviewed. Blood test w/o a significant abnormality. Dr. Alexandre evaluated the patient and recommends discharge home with F/U of PCP. - Differential Dx/Clinical Impression Provider Diagnosis: Adjustment disorder Discharge ED - Sign-Out/Discharge Documenting (check all that apply): Patient Departure - dc - Discharge Plan Condition: Stable Disposition: HOME Referrals: No Primary Care Phys,NOPCP [Primary Care Provider] - - Billing Disposition and Condition Condition: STABLE Disposition: Home - Attestation Statements Document Initiated by Scribe: Yes Documenting Scribe: Augusto Jackson Provider For Whom Scribe is Documenting (Include Credential): Cas Kumar MD Scribe Attestation: Augusto Carter, scribed for Cas Kumar MD on 06/28/19 at 1850. Scribe Documentation Reviewed: Yes Provider Attestation: The documentation as recorded by the scribe, Augusto Jackson accurately reflects the service I personally performed and the decisions made by me, Cas Kumar MD Status of Scribe Document: Viewed
[2019-06-28 17:15] LABS: Urine Appearance Cloudy; Urine Bilirubin Negative (Negative); Urine Blood Negative (Negative); Urine Color Amber; Urine Glucose Negative (Negative); Urine Ketones Trace (Negative); Urine Nitrite Negative (Negative); Urine Protein 1+(30 mg/dL) (Negative); Urine Specific Gravity 1.028 (1.010-1.030); Urine Urobilinogen Negative (Negative)
[2019-06-28 17:32] LABS: Urine Benzodiazepine Screen None Detected (None Detect); Urine Opiates Screen None Detected (None Detect)
[2019-06-28 17:39] VITALS: BP 00/00
[2019-06-28 17:45] LABS: Urine Bacteria Absent (Absent); Urine Red Blood Cell Trace(0-2/hpf) (Absent); Urine White Blood Cell Trace(0-5/hpf) (Absent)
== END 2019-06-28 17:38 | disposition home or self-care (01) ==
LOC: ED 16:08
DX: F43.20 Adjustment disorder, unspecified (principal); R45.851 Suicidal ideations; F41.9 Anxiety disorder, unspecified; R45.850 Homicidal ideations; R62.50 Unspecified lack of expected normal physiological development in childhood; F32.9 Major depressive disorder, single episode, unspecified; F17.210 Nicotine dependence, cigarettes, uncomplicated
CPT/HCPCS: 80307; 81003; 81015; 87086; 99285; G0480